=== PATIENT | male | born 1970 | race Caucasian/White ===

== ENCOUNTER → 2018-07-14 09:11 | Day surgery (SDC) | payer BC ==
--- NOTE | 2018-07-02 10:06 | HP ---
AMENDED REPORT NOW INCLUDES COSIGNER DESIGNATION CC: Dr. Renzo Martinez, [facility]; Dr. Cross, [facility]; Dr. Hicks, [employer] * ADMISSION HISTORY AND PHYSICAL: DATE OF ADMISSION: 07/14/18 ATTENDING SURGEON: Dr. Nicola Fonseca.* (DICTATED BY GILMER BATES) CHIEF COMPLAINT: Umbilical hernia. HISTORY OF PRESENT ILLNESS: This is a 48-year-old male who 6 to 8 months ago noted pain in the area of the umbilicus associated with intermittent bulge. The patient states that whenever the hernia is out, he has discomfort and therefore, he manually attempts to reduce it which is multiple times a day. The number of times he needs to reduce it has increased significant in the past month or so. He does have some associated nausea, but no vomiting and symptoms subside once the hernia is reduced. He has not had any particular change in bowel movements, though he does experience some constipation secondary to hydrocodone use. He has tried using a back and abdominal support with some improvement. He was seen in the office by Dr. oFnseca on 03/29/18, at which time exam confirmed the presence of a mildly tender reducible umbilical hernia with a defect estimated at 2 to [address] Fonseca recommended repair. The patient understands the indications, risks, benefits, and alternatives and would like to proceed as scheduled with open repair of umbilical hernia with possible mesh. PAST MEDICAL HISTORY: Psoriatic arthritis, spondylosis, chronic pain, hypertension, type 2 diabetes, anxiety and depression, sleep apnea (on CPAP), history of TIA approximately 10 years ago, tobacco use. He did have a cardiac catheterization done at the time of his TIA and was told that a piece of plaque was broken loose by the catheter, but he has had no cardiac symptoms or problems in the interim. 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 PAST SURGICAL HISTORY: His only previous surgery is a left shoulder surgery at age 16. CURRENT MEDICATIONS: 1. Celexa 40 mg once daily. 2. Cosentyx 300 mg subcutaneously once weekly (his last dose was 06/19/18 in preparation for surgery). 3. Methotrexate 2.5 mg 6 tablets every Thursday. His last dose 06/15/18. 4. Cardizem CD 120 mg once daily. 5. Metformin 500 mg b.i.d. 6. Gabapentin recently increased to 200 mg t.i.d. 7. Testosterone gel topically once daily. 8. Folic acid 1 mg once daily. 9. Flexeril 10 mg t.i.d. p.r.n. (generally, he uses once daily at h.s.). 10. Nystatin powder p.r.n. for rash. 11. Hydrocodone/APAP 5/325 one tablet 3 to 4 times daily. 12. He uses fluocinonide 0.05% topical cream p.r.n. for his psoriasis or halobetasol 0.05% p.r.n. 13. He uses dfrq-liz-oobbjrq ibuprofen p.r.n. 14. He takes the following supplements, multivitamin, vitamin D 5000 International Units once daily, vitamin C 1000 mg once daily. 15. Milk thistle 2 tablets once daily. 16. Turmeric daily. ALLERGIES: HUMIRA (severe weakness), CHANTIX (bad dreams), CYMBALTA (diarrhea) , EFFEXOR (ROAD MANAGER side effects). FAMILY HISTORY: Negative for anesthesia problems, bleeding or clotting disorders. SOCIAL HISTORY: The patient is . His daughter, her and their granddaughter also with them. He is not currently working, but has previously worked at [employer]. He ambulates with a cane. He is a current smoker one half to three quarters of pack per day, but is attempting to quit. He drinks on average 1 to 2 drinks every other day. He denies other recreational drug use. REVIEW OF SYSTEMS: General: No recent constitutional symptoms or acute illnesses other than described in the HPI. He has had chronic bilateral foot pain for which he is anticipating foot surgery with Dr. Cross soon after his hernia repair. He also received a left hip injection from Dr. Solis recently with improvement. He was seen for medical clearance today by Dr. Martinez (see separate note). HEENT: No problems reported. Cardiovascular: No chest pain or palpitations. He is treated for hypertension. Respiratory: No history of asthma, chronic cough, or shortness of breath. Smoking history as noted. GI: No problems reported other than constipation secondary to hydrocodone. : No problems reported. Endocrine: History of type 2 diabetes. He states that his fingersticks generally run around 150. He is unsure of his most recent A1c. Musculoskeletal: Psoriatic arthritis with arthritic changes of both hands and feet. He uses bilateral AFOs. Neuropsych: He is treated for anxiety and depression as well as chronic pain. He was recently referred to the pain clinic (Dr. Garcia) and is considering medical marijuana for pain management. PHYSICAL EXAMINATION GENERAL: Well-nourished, somewhat obese male, in no acute distress. VITAL SIGNS: Height 5 feet 7 inches, weight 203 pounds. Temperature 97.1, blood pressure 120/66, pulse 68. HEENT: Pupils are equal, round, and reactive. EOMs intact. No conjunctival pallor. Oropharynx, teeth in good repair. No intraoral lesions. NECK: No lymphadenopathy, thyromegaly, or masses. LUNGS: Clear to auscultation. No wheezes. HEART: Regular rate and rhythm. No murmur noted. ABDOMEN: Soft, nontender to palpation with the exception of the umbilical hernia area where there is a palpable mildly tender hernia defect. The remainder of the abdomen is soft and nontender without palpable masses or organomegaly. No inguinal hernia on recent exam. EXTREMITIES: No edema. He does have arthritic changes of both hands and feet. GENITALIA AND RECTAL: Not done today. BACK: No spinous process or CVA tenderness. NEUROLOGIC: Grossly intact. SKIN: Warm and dry. No suspicious rashes or lesions noted. IMPRESSION: Umbilical hernia. PLAN: Open repair of umbilical hernia with possible mesh. GILMER BATES [id number]/[facility] #: [id number] KI
[~2018-07-14 09:11] MED LIST: Acetaminophen TAB* 325 MG ONE; Acetaminophen TAB* 325 MG PO ONE; Buffered Lidocaine 0.9% SYRIN* 5 ML/SYR SYRINGE INTRADERM ONE; Bupivacaine 0.5% W/EPI SDV* 30 ML VIAL ONE; Dexamethasone IV* 4 MG/ML 1 ML (4 MG) ONE; Famotidine IV* 10 MG/ML 2 ML (20 mg) ONE; Ketorolac INJ* 30 MG/ML 1 ML VIAL ONE; Lidocaine 1% INJ* 10 MG/ML 30 ML SDV ONE; Midazolam* 1 MG/ML 2 ML VIAL (2 MG) ONE; Perflutren Lipid Microsphere* 3 ML VIAL ONE; Propofol* 10 MG/ML 20 ML BTL IV PUSH ONE; ceFAZolin 2 GM PREMIX in ORs 2 GM/50 ML BAG IVPB ONE; fentaNYL* 50 MCG/ML 2 ML VIAL (100 MCG VIAL) ONE
--- NOTE | 2018-07-14 11:49 | CONSULT ---
Subjective Date of Service: 07/14/18 - AFL Interval History: Pleasant 48 year old male patient who presented to [facility] – [place] today for elective umbilical hernia repair. According to Dr. Pino asnesthiology patient was found in be in AFL 3:1 conduction thus cardiology was consulted. Patient denies chest pain, palpitation, sensation of heart racing, chest pain, sob, dougherty, dizziness or syncope. does report 7 day h/o fatigue and intermittant nausea. Last ischemic eval per patient and his who is at bedside was > 5 years ago. He denies recently having an ecg done for pre operative clearance by PCP for hernia repair. Family History: Unchanged from Admission Social History: - On going tobacco 1/2 PPD for the past 30 years ago. moderate ETOH abuse, denies drug abuse, disabled, Past Medical History: Unchanged from Admission - GERARDO compliant with CPAP, DM, HTN, tobacco abuse, psoriatic arthritis, umbilical hernia, TIA after [facility] Medications Active Medications: Home Medications include; Folic acid daily, methotrexate 6mg PO tuesdays Neurotic 100mg ( 2) tablets PO TID Williams as directed Metformin 500mg PO BID Cardizem CD 120mg Po daily Celexa 40mg PO daily Cyclobenzaprine 5mg PO Q6H prn androgen as directed. Home Medications: Folic Acid TAB* [Folvite TAB*] 2 tab PO QAM 12/21/13 [History Confirmed 07/14/18 ] HYDROcodone/ACETAMIN 5-325 MG* [Williams 5-325 TAB*] 1 tab PO TID 03/30/14 [ History Confirmed 07/14/18] Ascorbic Acid TAB* [Vitamin C TAB*] 1,000 mg PO QAM 07/07/18 [History Confirmed 07/14/18] Cholecalciferol TAB* [Vitamin D TAB*] 5,000 unit PO QAM 07/07/18 [History Confirmed 07/14/18] Citalopram TAB* [CeleXA TAB*] 40 mg PO QAM 07/07/18 [History Confirmed 07/14/18] Cyclobenzaprine (NF) [Cyclobenzaprine 5 MG (NF)] 5 mg PO Q6H PRN 07/07/18 [ History Confirmed 07/14/18] Diltiazem CD CAP* [Cardizem CD CAP*] 120 mg PO QAM 07/07/18 [History Confirmed 07/14/18] Dry Skin Cream 07/07/18 [History] Gabapentin CAP(*) [Neurontin 100 mg CAP(*)] 2 tab PO TID 07/07/18 [History Confirmed 07/14/18] Methotrexate TAB* 6 tab PO TU 07/07/18 [History Confirmed 07/07/18] Milk Thistle 2 cap PO QAM 07/07/18 [History Confirmed 07/14/18] Secukinumab [Cosentyx] 300 mg INJ WEEKLY 07/07/18 [History Confirmed 07/07/18] Testosterone GEL (NF) [Androgel (NF)] 1 dose TOPICAL QAM 07/07/18 [History Confirmed 07/14/18] Vitamin B12 TAB* 1 tab PO QAM 07/07/18 [History Confirmed 07/14/18] metFORMIN* [Glucophage 500 MG TAB *] 500 mg PO BID 07/07/18 [History Confirmed 07/14/18] Review of Systems - Measurements Intake and Output: Intake and Output Last 24 Hours 07/12/18 07/13/18 07/14/18 07/15/18 06:59 06:59 06:59 06:59 Weight 208 lb - Review of Systems Constitutional Symptoms: Positive: Fatigue Gastroenterology: Positive: Nausea Review of Systems Statement: All other review of systems negative, unless stated above. Objective Vital Signs: Temp Pulse Resp BP Pulse Ox 97.3 F 77 17 128/94 98 07/14/18 11:20 07/14/18 11:35 07/14/18 11:35 07/14/18 11:35 07/14/18 11:35 Oxygen Devices in Use Now: None Eyes: No Scleral Icterus, PERRLA Ears/Nose/Mouth/Throat: NL Teeth, Lips, Gums, Mucous Membranes Moist Neck: NL Appearance and Movements; NL JVP Respiratory: Clear to Auscultation Cardiovascular: NL Sounds; No Murmurs; No JVD, No Edema, - - Normal S1 S2, irregular rate and rhythm, no murmur or gallop. Abdominal: NL Sounds; No Tenderness; No Distention Extremities: No Edema Skin: No Rash or Ulcers Neurological: Alert and Oriented x 3, NL Muscle Strength and Tone Lines/Tubes/Other Access: Clean, Dry and Intact Peripheral IV Laboratory Results: None to review EKG Data: Aflutter rate 77, 3:1 conduction. Assessment/Plan Pleasant 48 year old male patient who does not have a primary ditch tender. He has a notable h/o GERARDO complaint wiht CPAP, HTN, DM, on going otbacco abuse and psoriatic arthritis. He presented to [facility] [place] today for elective umbilical hernia repair. Per Dr. Pino once the patient was hooked up to telemetry AFL. #1 Newly Diagnosed AFL; Chads Vasc 4 ( HTM, DM, TIA) rates are currently controlled not on AV miguel agent. At home he is on Cardizem 120/day which I would continue. He is not symptomatic thus duration of time in AFL is unknown. Will check TFTs, CBC, BMP. He has notable risk factors such as GERARDO and obesity. There are two options the first is to do ASHUTOSH/CV and initiate DOAC, the second is to initiate DOAC and CV in 4-6 weeks. He will need an echo at some point which could also be insightful as to duration of AFL if there is atrial dilatation. #2 Umbilical Hernia; Defer to primary team #3 h/o HTN; On cardizem 120mg PO daily. Bp controlled. #4 h/o TIA after prior LHC thought to be cardioembolic. #5 disposition pending course will speak with Dr. Wood about plan of care and make further recommendations at that time.
[2018-07-14 12:25] LABS: ABS Basophils 0.1 10^3/ul (0-0.2); ABS Eosinophils 0.5 10^3/ul (0-0.6); ABS Lymphocytes 1.8 10^3/ul (1.0-4.8); ABS Monocytes 0.6 10^3/ul (0-0.8); ABS Neutrophils 6.2 10^3/ul (1.5-7.7); ABS Nucleated RBC 0 10^3/ul; Eosinophil % 5.1 % (0-6); Hematocrit 45 % (42-52); Hemoglobin 15.6 g/dl (14.0-18.0); Lymphocyte % 19.7 % (25-47); Mean Corpuscular HGB Conc 34 g/dl (31-36); Mean Corpuscular Hemoglobin 32 pg (27-31); Mean Corpuscular Volume 94 fL (80-94); Nucleated Red Blood Cells % 0.1; Platelet Count 200 10^3/ul (150-450); Red Blood Count 4.81 10^6/ul (4.00-5.40); Red Cell Distribution Width 13 % (10.5-15); White Blood Count 9.1 10^3/ul (3.5-10.8)
[2018-07-14 12:34] LABS: INR 0.98 (0.77-1.02)
[2018-07-14 12:47] LABS: EGFR Non-African American 138.5 (>60)
[2018-07-14 15:05] VITALS: BP 132/83
--- NOTE | 2018-07-14 15:20 | ECHO ---
Patient: MAO BURT [facility] Rec#: [id number] : 1970 Date: 07/14/2018 Age: 48y Height: 168 cm / 66.1 in Weight: 94 kg / 207.2 lbs Sex: M BSA: 2.03 Room#: PACU 8 Admit Date#: 07/14/2018 Type: Outpatient Referring: Meg Antoine Reading: Collette Wood MD On Site Services Specialist: Frances Jones RDCS,RDMS CC: Renzo Martinez MD Transthoracic Echocardiogram Indication: AFLUTTER BP: 127/81 HR: 73 Rhythm: A-Flutter Findings History: HTN, DM, GERARDO, smoker Technical Comments: The study quality is fair. Body habitus impacts image quality. Left Ventricle: The left ventricular chamber size is normal. Mild concentric left ventricular hypertrophy is observed. There is diffuse global hypokinesis of the left ventricle. There is moderately decreased left ventricular systolic function. The estimated ejection fraction is 35-40%. The assessment of diastolic function is non-diagnostic. Left Atrium: The left atrium is mildly dilated. Right Ventricle: The right ventricular cavity size is normal. The right ventricular global systolic function is moderately reduced. Right Atrium: The right atrium is mildly dilated. Aortic Valve: The aortic valve is trileaflet. Systolic excursion of the aortic valve is normal. There is aortic annular calcification. There is no evidence of aortic regurgitation. There is no evidence of aortic stenosis. Mitral Valve: The mitral valve leaflets are mildly thickened. There is no evidence of mitral regurgitation. There is no evidence of mitral stenosis. Tricuspid Valve: The tricuspid valve leaflets are normal. There is trace tricuspid regurgitation. Unable to estimate the right ventricular systolic pressure. Pulmonic Valve: The pulmonic valve appears normal. There is a trace pulmonic regurgitation. Pericardium: There is no significant pericardial effusion. Aorta: The aortic root appears normal. There is no dilatation of the aortic arch. Pulmonary Artery: The main pulmonary artery appears normal. Venous: The inferior vena cava is dilated. There is a greater than 50% respiratory change in the inferior vena cava dimension. Contrast: Definity was used to optimize study. A total of 3 ml was used Conclusions The study quality is fair. Body habitus impacts image quality. Mild concentric left ventricular hypertrophy is observed. There is diffuse global hypokinesis of the left ventricle. There is moderately decreased left ventricular systolic function. The estimated ejection fraction is 35-40%. The right ventricular global systolic function is moderately reduced. All valves show normal function. The patient was in atrial flutter with a controlled ventricular rate throughout the study. No prior echo to compare. Measurements Name Value Normal Range RVIDd (AP) 2D 3.2 cm (0.9 - 2.6) RAd ISD 4CH 5.7 cm (3.4 - 4.9) RA (A4C)W 4 cm (2.9 - 4.6) IVSd (2D) 1.2 cm (0.6 - 1) LVPWd (2D) 1 cm (0.6 - 1) LVIDd (2D) 5.2 cm (3.6 - 5.4) LVIDs (2D) 4.3 cm - LV FS (2D) 17 % (25 - 45) Aortic Annulus 2.1 cm (1.4 - 2.6) Ao root diameter (2D) 3.2 cm (2.1 - 3.5) Ascending Ao 3 cm (2.1 - 3.4) Aortic arch 2.8 cm (1.8 - 3.4) LA dimension (AP) 2D 4 cm (2.3 - 3.8) LAd ISD 4CH 5.4 cm (2.9 - 5.3) LA ISD 4CH W 5.5 cm (2.5 - 4.5) Name Value Normal Range LA ESV BP (A/L) index 39 ml/m2 - Name Value Normal Range MV E-wave Vmax 0.9 m/sec - MV deceleration time 151 msec - LV septal e' Vmax 0.15 m/sec - LV E:e' septal ratio 6 ratio - Name Value Normal Range AV Vmax 1 m/sec - AV peak gradient 4 mmHg - LVOT Vmax 0.8 m/sec - LVOT peak gradient 3 mmHg - MAXIMILIAN Vmax 0.8 m/sec - Name Value Normal Range RAP 8 mmHg - IVC diameter 2.3 cm - Name Value Normal Range PV Vmax 0.6 m/sec - PV peak gradient 1 mmHg -
== END | disposition home or self-care (01) ==
LOC: OR 09:11
PROVIDERS: ATTEND Surgery
DX: K42.9 Umbilical hernia without obstruction or gangrene (principal); Z53.09 Procedure and treatment not carried out because of other contraindication; I48.4 Atypical atrial flutter; Z72.0 Tobacco use; I10 Essential (primary) hypertension; E11.9 Type 2 diabetes mellitus without complications; Z79.84 Long term (current) use of oral hypoglycemic drugs; G47.33 Obstructive sleep apnea (adult) (pediatric); Z86.73 Personal history of transient ischemic attack (TIA), and cerebral infarction without residual deficits; L40.50 Arthropathic psoriasis, unspecified
CPT/HCPCS: 36415; 80048; 84439; 84443; 84481; 85025; 85610; 93005; 93306; A9270-GY; C8929; J0690; J1100; J1885; J2250; J2704; J3010

== ENCOUNTER → 2018-07-27 08:16 | Day surgery (SDC) | payer BC ==
[~2018-07-27 08:16] MED LIST changes: -Acetaminophen TAB* 325 MG ONE; -Acetaminophen TAB* 325 MG PO ONE; -Buffered Lidocaine 0.9% SYRIN* 5 ML/SYR SYRINGE INTRADERM ONE; -Bupivacaine 0.5% W/EPI SDV* 30 ML VIAL ONE; -Dexamethasone IV* 4 MG/ML 1 ML (4 MG) ONE; +Diazepam TAB(*) 5 MG ONE; -Famotidine IV* 10 MG/ML 2 ML (20 mg) ONE; +Heparin 2 UNITS/ML IVPREMIX* 2,000 ML IV ONE; +Heparin(*) 1000 UNIT/ML 10 ML VIAL CATH LAB IV ONE; +Iohexol 300 (CONTRAST) 10 ML SDV ONE; +Iohexol 350 (CONTRAST) 200 ML MDV IV ONE; -Ketorolac INJ* 30 MG/ML 1 ML VIAL ONE; +Midazolam* 1 MG/ML 10 ML VIAL (10 MG) ONE; -Midazolam* 1 MG/ML 2 ML VIAL (2 MG) ONE; +NS 0.9% 1000 ML* 1,000 ML IV SCH; +Nitroglycerin TAB 0.4 MG* 0.4 MG TAB SL PRN; -Perflutren Lipid Microsphere* 3 ML VIAL ONE; -Propofol* 10 MG/ML 20 ML BTL IV PUSH ONE; +VERAPAMIL 2.5 MG/ML 2 ML VIAL ** 5 mg/2 ml ONE; -ceFAZolin 2 GM PREMIX in ORs 2 GM/50 ML BAG IVPB ONE; +nitroGLYCERIN DRIP* 25,000 MCG/250 ML BTL ONE
[2018-07-27 13:14] VITALS: BP 113/76
--- NOTE | 2018-07-28 11:40 | CATH ---
CC: Dr. Collette Wood * CARDIAC CATHETERIZATION: DATE OF PROCEDURE: 07/27/18 [facility] CATH PROCEDURE: Cardiac catheterization including coronary angiography. HISTORY: The patient is a 48-year-old gentleman with a history of atrial flutter, also with a history of severe inguinal hernias who was scheduled for surgery when he was found to be in atrial flutter. A workup by Dr. Wood showed the patient had a mild hypokinesis of his left ventricle with an ejection fraction of 43%. A stress test had a small to moderate area of ischemia to the anterior wall and an area of potential infarct to the apex. Because of the potential need for surgical correction of his inguinal hernia, cardiac catheterization was recommended. PROCEDURE IN DETAIL: The patient was brought to the cardiac catheterization lab in a fasting state. Informed consent had been obtained prior to the procedure. All labs have been reviewed. The patient was placed supine on the procedure table. His right radial area was prepped and draped in the usual fashion. 1% lidocaine was used for local anesthesia. The radial artery was entered by a Seldinger technique and a guidewire was placed. Over the guidewire a 6-Egyptian hydrophilic sheath was placed. The patient underwent coronary angiography using a 6-Egyptian AR1 catheter and a AL1 catheter. At the end of the procedure, all sheaths and catheters were removed. The patient tolerated the procedure well with no complications. A total of 50 cc of Omnipaque dye was used and a total of 9.1 minutes of fluoro time was used. FINDINGS: Hemodynamics: Central aortic blood pressure of 90/69 with a mean of 79. Left ventricular pressure 94/10 with an end-diastolic pressure of 14. CORONARY ARTERIES: 1. Right coronary: The RCA was a large dominant vessel without disease. 2. Left main: The left main was normal in size. It bifurcated into the LAD and circumflex. There is no evidence of stenosis. 3. Left anterior descending artery: The LAD was normal in size. It gave off 2 diagonal vessels. There was no evidence of stenosis. 4. Left circumflex artery: The circumflex artery was normal in size. It gave off 2 obtuse marginal branches. There was no evidence of stenosis. IMPRESSION: 1. Normal coronary arteries. 2. Successful right radial catheterization. RECOMMENDATIONS: The patient will continue on maximum medical therapy. [id number]/[facility] #: [id number] [facility]
== END | disposition home or self-care (01) ==
LOC: CHICATH 08:16
PROVIDERS: ATTEND Specialist
DX: R94.39 Abnormal result of other cardiovascular function study (principal); I48.92 Unspecified atrial flutter; I25.5 Ischemic cardiomyopathy; E11.9 Type 2 diabetes mellitus without complications; Z79.84 Long term (current) use of oral hypoglycemic drugs; Z79.01 Long term (current) use of anticoagulants; Z88.8 Allergy status to other drugs, medicaments and biological substances; J45.909 Unspecified asthma, uncomplicated; I10 Essential (primary) hypertension; Z86.73 Personal history of transient ischemic attack (TIA), and cerebral infarction without residual deficits; F17.210 Nicotine dependence, cigarettes, uncomplicated; Z95.0 Presence of cardiac pacemaker
CPT/HCPCS: 93454; 99156; 99157; A9270-GY; C1887; J1644; J2250; J3010; Q9967

== ENCOUNTER 2018-08-10 14:13 | Day surgery (SDC) | payer BC ==
--- NOTE | 2018-08-05 19:54 | HP ---
CC: Dr. Martinez; Dr. Wood; Dr. Cross; Dr. Hicks, [employer] * ADMISSION HISTORY AND PHYSICAL: DATE OF ADMISSION: 08/10/18 ATTENDING PHYSICIAN: Dr. Nicola Fonseca * (GILMER Woodward). CHIEF COMPLAINT: Umbilical hernia. HISTORY OF PRESENT ILLNESS: This is a 48-year-old male who was scheduled for umbilical hernia repair on 07/14/18. He was found at that time to be in atrial flutter with controlled ventricular rate. His surgery was cancelled. He then underwent echocardiogram on 07/14/18 showing mild LVH, global hypokinesia, and a reduced ejection fraction estimated at 35% to 40%. A subsequent stress test on 07/19/18 showed evidence of an apical DC versus apical thinning with reversible ischemia in the anterior wall and a left ventricular ejection fraction calculated at 43%. He subsequently underwent cardiac catheterization on 07/27/18, which was apparently normal. He has been seen by Dr. Wood in followup and felt to be a good candidate for umbilical hernia repair. He is on anticoagulation (see below). She is considering cardioversion sometime in the near future. The patient had first noted pain in the umbilical area associated with an intermittent bulge beginning 7 to 9 months ago. The patient has discomfort throughout the day, but particularly when related to activity. He manually attempts to reduce the hernia multiple times during the day. He occasionally has associated nausea, but no vomiting and no symptoms to suggest incarceration or strangulation. His symptoms subside once the hernia is reduced. He has not had any particular change in bowel movements. He has used a back and abdominal support belt with some improvement. He was seen in the office by Dr. Fonseca on 03/29/18, at which time exam confirmed the presence of a mildly tender reducible umbilical hernia with a defect estimated at 2 to [address] Fonseca recommended repair. The patient understands the indications, risks , benefits, and alternatives and would like to proceed as scheduled with open repair of umbilical hernia with possible mesh. PAST MEDICAL HISTORY: Recent cardiac history as noted above with atrial flutter and cardiomyopathy, psoriatic arthritis, spondylosis, chronic pain, hypertension, type 2 diabetes, anxiety and depression, sleep apnea (on CPAP), history of TIA approximately 10 years ago, and tobacco abuse. PAST SURGICAL HISTORY: Left shoulder surgery at age 16. CURRENT MEDICATIONS: 1. Metoprolol succinate extended release 50 mg once daily at h.s. 2. Eliquis 5 mg b.i.d. (the patient is instructed to hold after his 08/08/18 evening dose). 3. Aspirin 325 mg once daily (instructed to continue perioperatively). 4. Celexa 40 mg once daily. 5. Cosentyx 300 mg subcutaneously once weekly (this has been held since ). 6. Methotrexate 2.5 mg 6 tablets every Thursday (last dose 06/15/18). 7. Metformin 500 mg b.i.d. 8. Gabapentin 200 mg t.i.d. 9. Testosterone gel topically once daily. 10. Folic acid 1 mg once daily. 11. Flexeril 10 mg t.i.d. p.r.n. (generally he uses once daily at h.s.). 12. Hydrocodone/APAP 5/325 one tablet 3 to 4 times daily p.r.n. pain. 13. Nystatin powder p.r.n. for rash. 14. Fluocinonide 0.05% topical cream p.r.n. for psoriasis or halobetasol 0.05% p.r.n. topically. 15. He uses [id number]-[id number]-[id number] ibuprofen p.r.n. He also takes the following supplements: 1. Multivitamin. 2. Vitamin D 5000 International Units once daily. 3. Vitamin C 1000 mg once daily. 4. Milk thistle 2 tablets once daily. 5. Turmeric once daily. 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 FAMILY HISTORY: Negative for anesthesia problems, bleeding or clotting disorders. SOCIAL HISTORY: The patient is . He is not currently working, but has previously worked at [employer]. He ambulates with a cane. He is a current smoker, who is attempting to quit. He states that he stopped drinking ( previously 1 to 2 drinks every other day). He denies other recreational drug use. REVIEW OF SYSTEMS: General: No additions to the HPI. He has had chronic bilateral foot pain for which he is anticipating foot surgery with Dr. Cross in the near future. He also received a hip injection from Dr. Solis recently with improvement. HEENT: No problems reported. Cardiovascular: No chest pain or palpitations. Recent evaluation for atrial flutter with cardiomyopathy (see attached from Dr. Wood). Respiratory: No history of asthma, chronic cough, or shortness of breath. Smoking history as noted. GI: No problems other than constipation secondary to hydrocodone. : No problems reported. Endocrine: Type 2 diabetes. He states that his fingersticks generally run around 150. Musculoskeletal: Psoriatic arthritis with arthritic changes of both hands and feet. He uses bilateral AFOs. Neuropsych: He is treated for anxiety and depression as well as chronic pain. He was recently referred to the pain clinic (Dr. Garcai) and is considering medical marijuana for pain management. PHYSICAL EXAMINATION GENERAL: Well-nourished, well-developed, somewhat obese male, in no acute distress. VITAL SIGNS: Height 66 inches, weight 208 pounds, BMI 33.6. Blood pressure 106 /64, pulse 72, respirations 18. HEENT: Pupils are equal, round, and reactive. EOMs intact. No conjunctival pallor. Oropharynx, teeth in good repair. No intraoral lesions. NECK: No lymphadenopathy, thyromegaly, or masses. LUNGS: Clear to auscultation. No wheezes. HEART: Regular rate and rhythm. No murmur noted. ABDOMEN: Visible area of swelling at the umbilicus where there is a palpable mildly tender hernia, which I did not attempt to reduce. The remainder of the abdomen is soft and nontender without palpable mass or organomegaly. No inguinal hernia on recent exam. EXTREMITIES: No edema. He does have arthritic changes of both hands and feet. GENITALIA AND RECTAL: Not done today. BACK: No spinous process or CVA tenderness. NEUROLOGIC: Grossly intact. SKIN: Warm and dry. No suspicious rashes or lesions noted. IMPRESSION: Umbilical hernia. PLAN: Open repair of umbilical hernia with possible mesh. GILMER WOODWARD [id number]/[facility] #: [id number] [facility]
[~2018-08-10 14:13] MED LIST changes: +Buffered Lidocaine 0.9% SYRIN* 5 ML/SYR SYRINGE INTRADERM ONE; +DiMENhydriNATE IV* 50 MG/ML VIAL IV PUSH PRN; -Diazepam TAB(*) 5 MG ONE; +Famotidine IV* 10 MG/ML 2 ML (20 mg) IV ONE; -Heparin 2 UNITS/ML IVPREMIX* 2,000 ML IV ONE; -Heparin(*) 1000 UNIT/ML 10 ML VIAL CATH LAB IV ONE; -Iohexol 300 (CONTRAST) 10 ML SDV ONE; -Iohexol 350 (CONTRAST) 200 ML MDV IV ONE; +Lactated Ringers 1000 ML Bag* 1,000 ML IV SCH; -Lidocaine 1% INJ* 10 MG/ML 30 ML SDV ONE; -Midazolam* 1 MG/ML 10 ML VIAL (10 MG) ONE; +Morphine VIAL* 4 MG/ML VIAL (1 ml vial) IV PRN; -NS 0.9% 1000 ML* 1,000 ML IV SCH; +Naloxone* 0.4 MG/ML 1 ML VIAL IV PRN; -Nitroglycerin TAB 0.4 MG* 0.4 MG TAB SL PRN; +Ondansetron TAB* 4 MG PO ONE; +PROCHLORPERAZINE INJ 5 MG/ML 2 ML VIAL IV PRN; -VERAPAMIL 2.5 MG/ML 2 ML VIAL ** 5 mg/2 ml ONE; +fentaNYL* 50 MCG/ML 2 ML VIAL (100 MCG VIAL) IV PRN; -fentaNYL* 50 MCG/ML 2 ML VIAL (100 MCG VIAL) ONE; -nitroGLYCERIN DRIP* 25,000 MCG/250 ML BTL ONE; +oxyCODONE/Acetamin 5/325 MG* TAB PO PRN
[2018-08-10] MEDS ORDERED: Midazolam* 1 MG/ML 5 ML VIAL (5 MG) ONE (14:15)
[2018-08-10] MEDS ORDERED: KETAMINE HCL* 50 MG/ML 10 ML VIAL ONE (14:15)
[2018-08-10] MEDS ORDERED: fentaNYL* 50 MCG/ML 2 ML VIAL (100 MCG VIAL) ONE (14:15)
[2018-08-10] MEDS ORDERED: Ondansetron ODT TAB* 4 MG ONE (14:50)
[2018-08-10] MEDS ORDERED: Famotidine IV* 10 MG/ML 2 ML (20 mg) ONE (14:50)
[2018-08-10] MEDS ORDERED: ceFAZolin 2 GM PREMIX in ORs 2 GM/50 ML BAG IVPB ONE (14:51)
[2018-08-10] MEDS ORDERED: Bupivacaine 0.25% EPI 200,000* 30 ML SDV ONE (15:22)
[2018-08-10] MEDS ORDERED: Lidocaine 1% INJ* 10 MG/ML 30 ML SDV ONE (15:25)
[2018-08-10] MEDS ORDERED: Bupivacaine 0.5% W/EPI SDV* 30 ML VIAL ONE (15:25)
[2018-08-10] MEDS ORDERED: Lidocaine 2% PF * 5 ML VIAL ONE (15:53)
[2018-08-10] MEDS ORDERED: Propofol* 500 MG/50 ML BTL ONE (15:53)
[2018-08-10] MEDS ORDERED: Propofol* 10 MG/ML 20 ML BTL ONE (15:54)
[2018-08-10] MEDS ORDERED: Metoprolol Tartrate IV* 1 MG/ML 5 ML VIAL ONE (15:54)
[2018-08-10 16:49] VITALS: BP 119/87
--- NOTE | 2018-08-16 12:55 | OP ---
CC: Renzo Martinez MD; Rk Hicks MD, Rheumatology, [place] * DATE OF OPERATION: 08/10/18 - SDS DATE OF : 70 SURGEON: Nicola Fonseca MD COPY PREPARER: Nayely Mai NP ANESTHESIOLOGIST: Dr. Meeks. ANESTHESIA: Local MAC. PRE-OP DIAGNOSIS: Umbilical hernia. POST-OP DIAGNOSIS: Umbilical hernia. OPERATIVE PROCEDURE: Open repair of umbilical hernia. ESTIMATED BLOOD LOSS: Less than 20 mL. FLUIDS: Crystalloids. SPECIMENS: None. DRAINS: None. COMPLICATIONS: None. COUNTS: The instrument, needle, and sponge counts were correct. DESCRIPTION OF PROCEDURE: The patient was brought to the operating room and placed on the table supine. Sequential compression devices were placed on both lower extremities. Intravenous sedation was administered. His abdomen was prepped and draped in the usual sterile fashion, and he received appropriate intravenous antibiotics. A time-out was performed. Local anesthetic was infiltrated into the skin and soft tissue in the periumbilical region. A curvilinear infraumbilical incision was created, and using a combination of sharp and blunt dissection as well as cautery, the umbilical skin was preserved as the hernia sac was dissected free from this. Within the sac was noted to be intestine which was easily reduced. The sac was not entered. The defect was examined and it measured 2 cm. It was decided to close this primarily. The repair was performed with 0 Tycron suture using interrupted [id number]-[id number] stitching. After completing the repair, the umbilical stalk was reapproximated to the fascia with 3-0 Vicryl and then the skin was closed in two layers with 3-0 Vicryl for the deep dermis and 4-0 Monocryl for the approximation of the skin edges. Steri-Strips and dressings were applied. The patient tolerated the procedure well and was awakened and transferred to Recovery in stable condition. [id number]/[facility] #: [id number] [facility]
== END 2018-08-10 16:59 | disposition home or self-care (01) ==
LOC: OR 14:13
PROVIDERS: ATTEND Surgery
DX: K42.9 Umbilical hernia without obstruction or gangrene (principal); Z72.0 Tobacco use; Z88.8 Allergy status to other drugs, medicaments and biological substances; E11.9 Type 2 diabetes mellitus without complications; Z79.84 Long term (current) use of oral hypoglycemic drugs; F41.8 Other specified anxiety disorders; G47.33 Obstructive sleep apnea (adult) (pediatric); I48.92 Unspecified atrial flutter; Z79.01 Long term (current) use of anticoagulants; I10 Essential (primary) hypertension; I42.9 Cardiomyopathy, unspecified; L40.50 Arthropathic psoriasis, unspecified
CPT/HCPCS: A9270-GY; J0690; J2250; J2704; J3010; J3490

== ENCOUNTER 2018-11-29 05:44 | Day surgery (SDC) | payer BC ==
--- NOTE | 2018-11-25 18:37 | HP ---
CC: Dr. Martinez * HISTORY AND PHYSICAL: DATE OF PLANNED ADMISSION AND SURGERY: 11/29/18 HISTORY OF PRESENT ILLNESS: Mr. Ramirez is a 48-year-old white male, who is admitted with proximal left ureteral calculus for shockwave lithotripsy followed by cystoscopy and placement of left ureteral stent. Mr. Ramirez was diagnosed with atrial flutter in July 2018. He was then started on Eliquis and after he was started on his treatment, he developed recurrent episodes of total gross painless hematuria. He did not have any flank pain or any voiding symptoms. The patient was worked up for the gross hematuria with a cystoscopy, which showed no suspicious bladder lesions. He then had a CT urogram, which showed a proximal left ureteral calculus. There were no other abnormalities noted, in particular there were no renal masses and no abnormal filling defects in the collecting systems or in the ureters. The gross hematuria was felt to be due to the ureteral calculus and effect of the anticoagulation. The patient then had a KUB, which confirmed the presence of a 7 mm radiopaque calculus in the proximal left ureter just distal to the ureteropelvic junction. Because of that finding, the patient is admitted for the above procedure. PAST MEDICAL HISTORY AND SYSTEM REVIEW: The patient is diabetic and is maintained on metformin 500 mg twice a day. He has atrial flutter and is maintained on Eliquis. The Eliquis was discontinued 5 days prior to this scheduled admission. He also has been on 1 regular aspirin per day and that was discontinued 5 days prior to his admission. He has hypertension and is maintained on metoprolol 50 mg daily. He has hypogonadism, on AndroGel replacement. He has history of anxiety and arthritis and is on Celexa 40 mg daily and on gabapentin 200 mg 3 times per day. He takes hydrocodone as needed for back pain. He uses medical marijuana by puffs every 4 hours as needed for his back pain. The patient was a chronic heavy smoker, but he stopped 10 years ago. He has an element of COPD. ALLERGIES: He reports having intolerance or allergic reaction to HUMIRA, CELEBREX, and CHANTIX. FAMILY HISTORY: Positive for arthritis, depression and anxiety in his mother, and hypertension and coronary artery disease in his father. PHYSICAL EXAMINATION GENERAL: Pleasant white male who looks older than his age, who is moderately overweight. VITAL SIGNS: Blood pressure 120/80, pulse of 70. LUNGS: Clear. HEART: Regular and rhythmic. No murmurs. ABDOMEN: Soft. No masses. No tenderness and no CVA tenderness. RECTAL: Exam showed a slightly enlarged, but nonsuspicious prostate. EXTREMITIES: Show no edema. IMPRESSION: 1. Recurrent episodes of gross hematuria while on anticoagulation with Eliquis , with the only positive finding on workup is a 7 mm calculus in the proximal left ureter. 2. Atrial flutter. 3. Hypertension. 4. Diabetes mellitus type 2. PLAN: The plan is for shockwave lithotripsy of the left ureteral calculus followed by placement of left ureteral stent. I discussed the above plans in detail with the patient. All his questions were answered. [id number]/[facility] #: [id number] [facility]
[~2018-11-29 05:44] MED LIST changes: -Buffered Lidocaine 0.9% SYRIN* 5 ML/SYR SYRINGE INTRADERM ONE; +Buffered Lidocaine 1% SYRIN* 1 ML/SYRINGE INTRADERM ONE; -DiMENhydriNATE IV* 50 MG/ML VIAL IV PUSH PRN; -Famotidine IV* 10 MG/ML 2 ML (20 mg) IV ONE; -Lactated Ringers 1000 ML Bag* 1,000 ML IV SCH; -Morphine VIAL* 4 MG/ML VIAL (1 ml vial) IV PRN; -Naloxone* 0.4 MG/ML 1 ML VIAL IV PRN; -Ondansetron TAB* 4 MG PO ONE; -PROCHLORPERAZINE INJ 5 MG/ML 2 ML VIAL IV PRN; +cefTRIAXone(*) 2 GM in NS 0.9% 100 ML* 100 ML IVPB ONE; -fentaNYL* 50 MCG/ML 2 ML VIAL (100 MCG VIAL) IV PRN; -oxyCODONE/Acetamin 5/325 MG* TAB PO PRN
[2018-11-29] MEDS ORDERED: Acetaminophen TAB* 325 MG PO ONE (06:00)
[2018-11-29] MEDS ORDERED: Lactated Ringers 1000 ML Bag* 1,000 ML IV SCH (06:00)
[2018-11-29] MEDS ORDERED: Acetaminophen TAB* 325 MG ONE (06:18)
[2018-11-29] MEDS ORDERED: cefTRIAXone(*) 2 GM ADDV.VIAL IVPB ONE (06:18)
[2018-11-29] MEDS ORDERED: fentaNYL* 50 MCG/ML 2 ML VIAL (100 MCG VIAL) ONE ×2 (07:15→07:57)
[2018-11-29] MEDS ORDERED: Midazolam* 1 MG/ML 2 ML VIAL (2 MG) ONE (07:16)
[2018-11-29] MEDS ORDERED: Iohexol 180 (CONTRAST) 10 ML SDV IV ONE (07:20)
[2018-11-29] MEDS ORDERED: Famotidine IV* 10 MG/ML 2 ML (20 mg) ONE (07:29)
[2018-11-29] MEDS ORDERED: Dexamethasone IV* 4 MG/ML 1 ML (4 MG) ONE (07:40)
[2018-11-29] MEDS ORDERED: Propofol* 10 MG/ML 20 ML BTL ONE (07:40)
[2018-11-29] MEDS ORDERED: Lidocaine 2% PF * 5 ML VIAL ONE (07:40)
[2018-11-29] MEDS ORDERED: Metoprolol Tartrate IV* 1 MG/ML 5 ML VIAL ONE (07:58)
[2018-11-29] MEDS ORDERED: DiMENhydriNATE IV* 50 MG/ML VIAL IV PUSH PRN (08:03)
[2018-11-29] MEDS ORDERED: Ondansetron INJ* 2 MG/ML VIAL IV PRN (08:03)
[2018-11-29] MEDS ORDERED: HYDROcodone/ACETAMIN 5-325 MG* 1 TAB PO PRN ×2 (08:03)
[2018-11-29] MEDS ORDERED: Naloxone* 0.4 MG/ML 1 ML VIAL IV PRN (08:03)
[2018-11-29] MEDS ORDERED: Levalbuterol 0.63MG/3ML NEB* UNIT OF USE INH PRN (08:03)
[2018-11-29] MEDS ORDERED: fentaNYL* 50 MCG/ML 2 ML VIAL (100 MCG VIAL) IV PRN (08:03)
[2018-11-29] MEDS ORDERED: diPHENhydraMINE IV* 50 MG/ML 1 ml VIAL (BENADRYL) IV PRN (08:03)
[2018-11-29] MEDS ORDERED: Acetaminophen TAB* 325 MG PO PRN (08:03)
[2018-11-29] MEDS ORDERED: PROCHLORPERAZINE INJ 5 MG/ML 2 ML VIAL IV PRN (08:03)
[2018-11-29] MEDS ORDERED: Ondansetron INJ* 2 MG/ML VIAL ONE (08:05)
[2018-11-29 09:32] VITALS: BP 123/73
--- NOTE | 2018-11-29 12:20 | OP ---
CC: Dr. Martinez * DATE OF OPERATION: 11/29/18 - SDS DATE OF : 70 SURGEON: Ashok Dunaway MD ANESTHESIOLOGIST: Dr. Axel Pino. ANESTHESIA: General. PRE-OP DIAGNOSIS: Proximal left ureteral calculus, 8 mm. POST-OP DIAGNOSIS: Proximal left ureteral calculus, 8 mm. OPERATIVE PROCEDURE: 1. Shock wave lithotripsy of proximal left ureteral calculus. 2. Cystoscopy, left retrograde pyelography, and placement of left ureteral stent (6 Peruvian). INDICATIONS: Mr. Ramirez is a 48-year-old white male, who was worked up because of gross hematuria and was noted on the CT urogram to have a 7- to 8-mm calculus at the left ureteropelvic junction. Cystoscopy was negative. The calculus was minimally obstructing. The patient had been maintained on anticoagulation. KUB showed the calculus to be radiopaque at the UPJ level. The patient now is admitted for treatment of the ureteral calculus. His anticoagulation was discontinued prior to the procedure. PATHOLOGY: At preoperative KUB and on fluoroscopy a triangular calculus was noted at the level of the ureteropelvic junction measuring about 7 to 8 mm in size. Cystoscopy showed no suspicious bladder lesions. Left retrograde pyelography showed mild fullness of the calyces. DESCRIPTION OF PROCEDURE: After successful general anesthesia, the patient was placed in the supine position on the shock wave lithotripsy table. The left ureteral calculus was visualized in both the PA and the oblique x-ray views and the position of the patient and the generator were adjusted to have the stone in the focus of the shock waves. A total of 2,060 shocks were then delivered at a rate of 60 shocks per minute. The proper positioning of the generator and of the stone were monitored periodically. There was very good fragmentation of the stone which seemed to have migrated inside the renal pelvis as it spread out at that level. The patient was then placed in the lithotomy position and was prepped and draped for a cystoscopy. Cystoscopy was performed. The bladder was inspected and the above findings were noted. A flexible-tipped guidewire was then introduced into the left orifice and positioned in the area of the renal pelvis. An open-ended catheter was fed on top of the guidewire and positioned inside the renal pelvis and the left collecting system was decompressed. Bloody urine was noted from the left kidney. Retrograde pyelography was performed. A size 6-Peruvian stent was then placed with the proximal end coiling in the renal pelvis and the distal end coiling inside the bladder. There was good drainage of contrast from the kidney. There was no evidence of any abnormal filling defects in the collecting system to suggest blood clots. The patient tolerated the procedures well and left the operating room in good condition. The plan is to see the patient in the office in 3 days for follow-up. The plan is to keep the stent in for about 10 days; it will be removed in the office under local anesthesia. [id number]/[facility] #: [id number] [facility]
== END 2018-11-29 19:16 | disposition home or self-care (01) ==
LOC: OR 05:44
PROVIDERS: ATTEND Urology
DX: N20.1 Calculus of ureter (principal); R31.9 Hematuria, unspecified; I48.92 Unspecified atrial flutter; Z79.01 Long term (current) use of anticoagulants; I10 Essential (primary) hypertension; E11.9 Type 2 diabetes mellitus without complications; Z79.84 Long term (current) use of oral hypoglycemic drugs; Z87.891 Personal history of nicotine dependence
CPT/HCPCS: 74018; A9270-GY; C1876; J0696; J1100; J2250; J2405; J2704; J3010; J3490

== ENCOUNTER 2019-06-28 08:49 | Day surgery (SDC) | payer BC ==
[~2019-06-28 08:49] MED LIST changes: +Lactated Ringers 1000 ML Bag* 1,000 ML IV SCH; -cefTRIAXone(*) 2 GM in NS 0.9% 100 ML* 100 ML IVPB ONE
[2019-06-28] MEDS ORDERED: Buffered Lidocaine 1% SYRIN* 1 ML/SYRINGE INTRADERM ONE (09:00)
[2019-06-28] MEDS ORDERED: ceFAZolin 2 GM in NS PREMIX(*) 2 GM/100 ML BAG IVPB ONE (09:00)
[2019-06-28] MEDS ORDERED: fentaNYL* 50 MCG/ML 2 ML VIAL (100 MCG VIAL) ONE (10:06)
[2019-06-28] MEDS ORDERED: Lidocaine 2% PF* 10 ML AMP ONE (10:06)
[2019-06-28] MEDS ORDERED: Midazolam* 1 MG/ML 2 ML VIAL (2 MG) ONE (10:06)
[2019-06-28] MEDS ORDERED: Propofol* 10 MG/ML 20 ML BTL ONE (10:06)
[2019-06-28] MEDS ORDERED: Bupivacaine 0.5%* 50 ML MDV VIAL ONE (11:06)
[2019-06-28] MEDS ORDERED: PROCHLORPERAZINE INJ 5 MG/ML 2 ML VIAL IV PRN (12:02)
[2019-06-28] MEDS ORDERED: oxyCODONE TAB* 5 MG TAB PO PRN (12:02)
[2019-06-28] MEDS ORDERED: Naloxone* 0.4 MG/ML 1 ML VIAL IV PRN (12:02)
[2019-06-28] MEDS ORDERED: Ondansetron INJ* 2 MG/ML VIAL IV PRN (12:02)
[2019-06-28] MEDS ORDERED: diPHENhydraMINE IV* 50 MG/ML 1 ml VIAL (BENADRYL) IV PRN (12:02)
[2019-06-28] MEDS ORDERED: Acetaminophen TAB* 325 MG PO PRN (12:02)
[2019-06-28] MEDS ORDERED: HYDROmorphone INJ1* 1 MG/ML SYRINGE ONE ×2 (12:31→13:29)
[2019-06-28] MEDS ORDERED: Ondansetron INJ* 2 MG/ML VIAL ONE (12:42)
[2019-06-28] MEDS ORDERED: Ketorolac INJ* 30 MG/ML 1 ML VIAL ONE (12:42)
[2019-06-28] MEDS ORDERED: oxyCODONE TAB* 5 MG TAB ONE (13:29)
[2019-06-28] MEDS ORDERED: Metoprolol Tartrate IV* 1 MG/ML 5 ML VIAL ONE ×2 (13:29→14:40)
[2019-06-28] MEDS ORDERED: Metoprolol Tartrate IV* 1 MG/ML 5 ML VIAL IV PRN (13:33)
[2019-06-28] MEDS: HYDROmorphone INJ1* 1 MG/ML SYRINGE IV PRN ×2 (13:41→13:51)
--- NOTE | 2019-06-28 15:05 | OP ---
Operative Report - Blank - Operative Report Date of Operation: 06/28/19 Note: PATIENT: Tee Ramirez DATE OF : 1970 DATE OF SURGERY: 06/28/2019 SURGEON: Tim Cross MD CLINICAL SYSTEMS ANALYST: GILMER Lares, whos assistance was necessary for positioning, retraction, help with instrumentation, and closure. ANESTHESIOLOGIST: Dr. Jay PREOPERATIVE DIAGNOSIS: Left forefoot pain, synovitis, and claw toes in the setting of psoriatic arthritis. Left gastrocnemius equinus. POSTOPERATIVE DIAGNOSIS: Left forefoot pain, synovitis, and claw toes in the setting of psoriatic arthritis. Left gastrocnemius equinus. OPERATION: 1. Left foot 2nd 5th 5th MTP joint synovectomies 2. Left foot FHL and 2nd 5th FDL tenotomies 3. Left foot 2nd 5th claw toe corrections with PIP resection arthroplasties 4. Left gastrocnemius recession ANESTHESIA: General IMPLANTS: 0.045 k-wire x2 and 0.062 k-wire x3 TOURNIQUET TIME: Less than 2 hours with a well-padded thigh tourniquet at 250 mmHg SPECIMENS: none ESTIMATED BLOOD LOSS: minimal COMPLICATIONS: none STATUS: Stable from the operating room to the recovery room and then home INDICATIONS FOR PROCEDURE: Tee has psoriatic arthritis and persistent forefoot pain at the MTP joints and tips of the toes. Both operative and non-operative treatment alternatives were reviewed. Further, the nature and risks of surgery were reviewed in careful detail. Our discussions regarding the risks of surgery included, but were not limited to, infection, wound problems, nerve injury, neuroma, RSD, persistent symptoms, blood clot, recurrent deformity, persistent pain, need for further surgery, failure of the surgery, and even the remote chance of catastrophic complication. DESCRIPTION OF PROCEDURE: The patient was seen in the preoperative holding unit and informed written consent was obtained. The appropriate extremity was marked. The patient was then brought to the operating room and carefully positioned on the operating room table. Anesthesia was induced. All bony prominences were padded with great care. A chlorhexidine based pre-scrub was performed followed by a chloraprep prep and drape in standard sterile fashion. A surgical safety pause was then conducted in which we confirmed the appropriate patient, extremity, planned procedure, availability of equipment, indication and administration of prophylactic antibiotics, and DVT prophylaxis in the form of a compression boot on the non-surgical extremity. I began with an Esmarch exsanguination of limb and inflated the tourniquet. I performed a percutaneous tenotomy of the second toe FDL through a plantar incision. I then made an incision over the left 2nd toe from the MTP joint to the PIP joint and taken down to the level of bone and joint. I sharply incised into the MTP joint and performed a thorough synovectomy with a Rongeur. The articular cartilage looked good. I then turned my attention to the PIP joint. The collateral ligaments were released on both sides. I then used a small oscillating saw to osteotomize the distal aspect of the proximal phalanx. This was then excised. I then placed a 0.062 K wire through the toe in an antegrade/ retrograde fashion. The resection and pin placement was then confirmed with fluoroscopy. The toe sat nice and straight clinically. I performed a percutaneous tenotomy of the 3rd toe FDL through a plantar incision. I then made an incision over the left 3rd toe from the MTP joint to the PIP joint and taken down to the level of bone and joint. I sharply incised into the MTP joint and performed a thorough synovectomy with a Rongeur. The articular cartilage looked good. I then turned my attention to the PIP joint. The collateral ligaments were released on both sides. I then used a small oscillating saw to osteotomize the distal aspect of the proximal phalanx. This was then excised. I then placed a 0.062 K wire through the toe in an antegrade/ retrograde fashion. The resection and pin placement was then confirmed with fluoroscopy. The toe sat nice and straight clinically. I performed a percutaneous tenotomy of the 4th toe FDL through a plantar incision. I then made an incision over the left 4th toe from the MTP joint to the PIP joint and taken down to the level of bone and joint. I sharply incised into the MTP joint and performed a thorough synovectomy with a Rongeur. The articular cartilage looked good. I then turned my attention to the PIP joint. The collateral ligaments were released on both sides. I then used a small oscillating saw to osteotomize the distal aspect of the proximal phalanx. This was then excised. I then placed a 0.045 K wire through the toe in an antegrade/ retrograde fashion. The resection and pin placement was then confirmed with fluoroscopy. The toe sat nice and straight clinically. I performed a percutaneous tenotomy of the 5th toe FDL through a plantar incision. I then made an incision over the left 5th toe from the MTP joint to the PIP joint and taken down to the level of bone and joint. I sharply incised into the MTP joint and performed a thorough synovectomy with a Rongeur. The articular cartilage looked good. I then turned my attention to the PIP joint. The collateral ligaments were released on both sides. I then used a small oscillating saw to osteotomize the distal aspect of the proximal phalanx. This was then excised. I then placed a 0.045 K wire through the toe in an antegrade/ retrograde fashion. The resection and pin placement was then confirmed with fluoroscopy. The toe sat nice and straight clinically. I then percutaneously released the FHL tendon of the left hallux through a plantar incision. I then placed a 0.062 K wire through the hallux in a retrograde fashion to hold this straight. I then made an approximately 3-cm incision at the posteromedial calf. I carried the dissection through the soft tissue and divided the crural fascia longitudinally. I then exposed the fascia of the gastrocnemius muscle. Great care was taken to protect the sural nerve throughout this procedure. I cleared all adhesions from the posterior aspect of the gastrocnemius fascia and then transected this in its entirety from medially to laterally. I then identified the plantaris tendon, which was also tight medially. This was transected. These procedures had the effect of improving the ankle dorsiflexion to approximately 10 degrees. I then again confirmed that the sural nerve was in continuity. All of the wounds were then copiously irrigated and closed in a layered fashion utilizing #3-0 Monocryl for the subdermal layer and 3-0 nylon or norbert for the skin. A sterile dressing was applied followed by a splint with the ankle in neutral position. The patient was then awakened from anesthesia and transferred to the recovery room in stable condition. There were no complications. All needle and sponge counts were correct at the end of the case. ATTESTATION: I attest I was present and scrubbed and performed the critical portions of the procedure myself. POSTOPERATIVE PLAN: Heel weightbearing and we will plan on 6 weeks with the k- wires. I will see him back in 2 weeks for a wound check and likely suture removal.
[2019-06-28 15:58] VITALS: BP 155/96
== END 2019-06-28 16:00 | disposition home or self-care (01) ==
LOC: OR 08:49
PROVIDERS: ATTEND Orthopaedic Surgery
DX: M20.5X2 Other deformities of toe(s) (acquired), left foot (principal); M65.872 Other synovitis and tenosynovitis, left ankle and foot; M67.02 Short Achilles tendon (acquired), left ankle; L40.59 Other psoriatic arthropathy; E11.9 Type 2 diabetes mellitus without complications; Z79.84 Long term (current) use of oral hypoglycemic drugs; F17.210 Nicotine dependence, cigarettes, uncomplicated; I10 Essential (primary) hypertension; J45.909 Unspecified asthma, uncomplicated; E78.00 Pure hypercholesterolemia, unspecified; F41.8 Other specified anxiety disorders; Z86.73 Personal history of transient ischemic attack (TIA), and cerebral infarction without residual deficits; Z79.01 Long term (current) use of anticoagulants
CPT/HCPCS: 76000; A9270-GY; C1776; J0690; J1170; J1885; J2001; J2250; J2405; J2704; J3010; J3490

== ENCOUNTER 2019-08-16 13:06 | Emergency (ER) | payer BC ==
--- OUTSIDE RECORDS SUMMARY | 2019-08-16 14:52 | XMS REPORT | Continuity of Care Document ---
:1970 External Reference #:[id number] Author Name Torito Garber M.D. (transmitted by agent of provider Dolly Singh) Address [address] [place] [id number] Care Team Providers Name Role Phone Renzo Martinez MD - Internal Medicine Care Team Information Size Maker Problems Active Problems Provider Date Malignant essential hypertension Daquan Sommer M.D. Onset: 2011 Electrocardiogram abnormal Daquan Sommer M.D. Onset: 05/17/2012 Chest pain Daquan Sommer M.D. Onset: 05/17/2012 Mixed hyperlipidemia Daquan Sommer M.D. Onset: 05/17/2012 Psoriasis with arthropathy Everette Robert M.D. Onset: 06/17/2012 Medications Half-Way (Current) Use Everette Robert M.D. Onset: 06/17/2012 Encounter Psoriasis Everette Robert M.D. Onset: 03/24/2014 Eruption Everette Robert M.D. Onset: 04/14/2014 Disorder of muscle Everetet Robert M.D. Onset: 04/14/2014 Type 2 diabetes mellitus with diabetic Tim Cross MD Onset: 10/02/2017 polyneuropathy Thoracic and lumbosacral neuritis Tim Cross MD Onset: 03/16/2018 Brachial neuritis Tim Cross MD Onset: 04/12/2018 Hammer toe Tim Cross MD Onset: 04/12/2018 Arthritis mutilans Adelina Solis M.D. Onset: 05/31/2018 Localized, primary osteoarthritis of Adelina Will, M.D. Onset: 05/31/2018 the pelvic region and thigh Acquired deformity of toe Tim Cross MD Onset: 06/30/2018 Other synovitis and tenosynovitis, left Tim Cross MD Onset: 06/30/2018 ankle and foot Other synovitis and tenosynovitis, Tim Cross MD Onset: 06/30/2018 right ankle and foot Chronic ischemic heart disease Collette Wood M.D. Onset: 07/23/2018 Atrial flutter Collette Wood M.D. Onset: 07/23/2018 Tachycardia-induced cardiomyopathy Collette Wood M.D. Onset: 07/29/2018 Acquired left claw foot Tim Cross MD Onset: 10/12/2018 Tendon contracture Tim Cross MD Onset: 10/12/2018 Cardiomyopathy Collette Wood M.D. Onset: 01/14/2019 Social History Type Date Description Comments Sex Unknown Tobacco Use Start: Unknown Patient is a current cigarette smoker, smokes every day Tobacco Use Start: Unknown currently smokes 1/2 Pack Daily Smoking Status Reviewed: 07/22/19 currently smokes 1/2 Pack Daily Smokeless Tobacco Never Used Smokeless Tobacco ETOH Use Currently consumes alcohol ETOH Use Drinks 3 Alcoholic Beverages Per Week Tobacco Use Start: Unknown Patient is a current smoker, smokes every day Recreational Drug Use Current Drug User Medical Marijuana (vaper) Exercise Type/Frequency Does not exercise Allergies, Adverse Reactions, Alerts Active Allergies Reaction Severity Comments Date Humira headache, not feeling well, went to 04/21/2014 ER Varenicline Tartrate PARTS FABRICATOR reaction 10/02/2017 Cymbalta GI upset 10/02/2017 Effexor GI upset 10/02/2017 Inactive Allergies NKDA 03/28/2009 NKDA 04/21/2014 Medications Active Medications SIG Qnty Indications Ordering Date Provider Simponi Aria 2 mg/kg iv Torito Garber, 07/01/2019 50mg/4ML infused over 30 M.D. Solution minutes at weeks 0 and 4, then every 8 weeks is the dose Oxycodone HCL 1 tabs by mouth 10tabs Tim Cross, 06/28/2019 5mg Tablets every 6 hours as MD needed Testosterone Gel Torito Garber, 04/26/2019 MMary Metoprolol Succinate ER 1.5 tabs by 135tabs I48.92 Drea Mena, 2018 mouth at N.P. 50mg Tablets ER 24HR nighttime Vitamin B-12 1 by mouth every Unknown 500mcg Tablets day Multivitamin Adult 1 by mouth every Unknown Tablets day Vitamin D-3 1 by mouth every Unknown 5000Unit day Tablets Citalopram Hydrobromide 1 by mouth every Unknown day 20mg Tablets Medical Marijuana vaper twice day Unknown prn Eliquis 1 by mouth twice 180tabs Collette Wood, 5mg Tablets a day M.DAbdifatah Metformin HCL 1 by mouth twice Unknown 500mg Tablets a day Hydrocodone-Acetaminoph 1 or 2 tabs by Unknown en mouth every 4 5-325mg Tablets hours as needed for pain Gabapentin 2 by mouth three Unknown 100mg Capsules times daily Folic Acid 2 by mouth every Unknown 1mg Tablets day Cyclobenzaprine HCL one by mouth 60tabs Unknown 10mg three times a Tablets day as needed spasm Aluminum Lactate Cream Unknown For Feet Milk Thistle 2 po qd Unknown 150mg Capsules Vitamin C 1 po qd Unknown 500mg Tablets ER Multivitamins 1 po qd 30tabs Unknown Tablets Fish Oil Double daily Unknown Strength 1200mg Capsules History Medications Otezla take 1 tablet by 90tabs Torito Garber, 06/02/2019 - 30mg mouth twice a day M.D. 07/22/2019 Tablets (after finishing the sample pack) Medications Administered in Office Medication SIG Qnty Indications Ordering Provider Date Records Fee Collette Wood M.D. 05/20/2019 Injection No Injection Adelina Solis M.D. 06/23/2018 Injection Depomedrol 40MG Adelina Solis M.D. 06/23/2018 Injection PPD Everette Robert M.D. 11/15/2010 Injection Immunizations CPT Code Status Date Vaccine Reaction Lot # [id number] Given 07/22/2019 Influenza Virus Vaccine, Patient denies ever [id number] Quadrivalent, Split, having a serious Preservative Free reaction to eggs or egg products, ever having a serious reaction or other problem after getting influenza vaccination, ever being diagnosed with Oldmhtm-Yqqdz-Ycfxijpz, possibility of being , fever or moderate/severe illness today, allergy to latex. Patient verifies "I have read or had explained to me the information about influenza and influenza vaccine. I have had a chance to ask questions that were answered to my satisfaction. I believe I understand the benefits and risks of influenza vaccine and ask that the vaccine be given to me." Patient tolerated injection w/ no immediate adverse effect. 23990 Given 07/05/2013 Flu Vaccine Split Virus 1345 4p Preservative Free For Indiv 3Yr Older Vital Signs Date Vital Result Comment 07/22/2019 9:53am Height 66 inches 5'6" Heart Rate 73 /min BP Systolic Sitting 126 mmHg BP Diastolic Sitting 78 mmHg Body Temperature 97.9 F Pain Level 6 O2 % BldC Oximetry 97 % 07/13/2019 1:36pm Height 66 inches 5'6" Weight 202.00 lb Respiratory Rate 16 /min Pain Level 4 BMI (Body Mass Index) 32.6 kg/m2 Results Test Acquired Date Facility Test Result H/L Range Note Laboratory test 06/28/2019 [facility] Point of Care 192 mg/dL High 70-100 [address] [place] [address] [phone] Laboratory test 06/02/2019 [facility] Erythrocyte Sed 2 mm/Hr Normal 0-14 [address] Rate [place], [place] [id number] [phone] C Reactive Protein 10.60 mg/L High <8.01 3 CBC Auto 06/02/2019 [facility] White Blood 9.7 10^3/uL Normal 3.5-10.[address] [place] [address] [phone] Red Blood Count 4.90 10^6/uL Normal 4.18-5.48 Hemoglobin 16.0 g/dL Normal 14.0-18.0 Hematocrit 46 % Normal 42-52 Mean Corpuscular Volume 95 fL High 80-94 Mean Corpuscular Hemoglobin 33 pg High 27-31 Mean Corpuscular HGB Conc 35 g/dL Normal 31-36 Red Cell Distribution Width 14 % Normal 10-15 Platelet Count 214 10^3/uL Normal 150-450 Mean Platelet Volume 8.6 fL Normal 7.4-10.4 Abs Neutrophils 6.5 10^3/uL Normal 1.5-7.7 Abs Lymphocytes 2.3 10^3/uL Normal 1.0-4.8 Abs Monocytes 0.6 10^3/uL Normal 0-0.8 Abs Eosinophils 0.2 10^3/uL Normal 0-0.6 Abs Basophils 0.0 10^3/uL Normal 0-0.2 Abs Nucleated RBC 0.0 10^3/uL Granulocyte % 67.0 % Lymphocyte % 23.6 % Monocyte % 6.7 % Eosinophil % 2.3 % Basophil % 0.4 % Nucleated Red Blood Cells % 0.1 Comp Metabolic 06/02/2019 [facility] Sodium 139 mmol/L Normal 135-[address] [place] [address] [phone] Potassium 4.2 mmol/L Normal 3.5-5.0 Chloride 102 mmol/L Normal 101-111 Co2 Carbon Dioxide 29 mmol/L Normal 22-32 Anion Gap 8 mmol/L Normal 2-11 Glucose 174 mg/dL High 70-100 Blood Urea Nitrogen 12 mg/dL Normal 6-24 Creatinine 0.79 mg/dL Normal 0.67-1.17 BUN/Creatinine Ratio 15.2 Normal 8-20 Calcium 9.7 mg/dL Normal 8.6-10.3 Total Protein 6.4 g/dL Normal 6.4-8.9 Albumin 4.3 g/dL Normal 3.2-5.2 Globulin 2.1 g/dL Normal 2-4 Albumin/Globulin Ratio 2.0 Normal 1-3 Total Bilirubin 0.50 mg/dL Normal 0.2-1.0 Alkaline Phosphatase 109 U/L High 34-104 Alt 96 U/L High 7-52 Ast 65 U/L High 13-39 Egfr Non- 104.2 >60 Egfr 126.1 >60 4 Quantiferon-TB 06/02/2019 [facility] QuantiferonTb Negative Negative [address] [place] [address] [phone] TB1 Ag minus Nil Result 0.01 IU/mL TB2 Ag minus Nil Result 0.00 IU/mL Mitogen minus Nil Result 13.23 IU/mL Nil Result 0.03 IU/mL Iron & Iron Binding 06/02/2019 [facility] Iron 155 g/dL Normal 50-[address] [place] [address] [phone] Unsaturated Iron Binding 216 g/dL Total Iron Binding Capacity 371 g/dL Normal 250-450 Transferrin 265 mg/dL Normal 203-362 % Iron Saturation 42 % Normal 15-55 Laboratory test 06/02/2019 [facility] Ferritin 546.1 High 24- 336 [address] ng/mL [place], [place] [id number] [phone] Laboratory test 04/26/2019 [facility] Erythrocyte Sed 1 mm/Hr Normal 0-[address] [place] [address] [phone] C Reactive Protein 12.70 mg/L High <8.01 Liver Function 04/26/2019 [facility] Total Protein 6.8 g/dL Normal 6.4-8.[address] [place] [address] [phone] Albumin 4.5 g/dL Normal 3.2-5.2 Globulin 2.3 g/dL Normal 2-4 Albumin/Globulin Ratio 2.0 Normal 1-3 Total Bilirubin 0.40 mg/dL Normal 0.2-1.0 Direct Bilirubin 0.10 mg/dL Normal 0.03-0.18 Indirect Bilirubin 0.3 mg/dL Normal 0.3-1.0 Alkaline Phosphatase 102 U/L Normal 34-104 Alt 84 U/L High 7-52 Ast 59 U/L High 13-39 Laboratory test 04/26/2019 [facility] Vitamin D 53.5 ng/mL High 20-50 [address] Total 25(Oh) [place] [address] [phone] 1 Behavioral Sciences Department Chair: [id number] 2 Please check labs this week 3 Please check labs this week 4 Because ethnic data is not always readily available, this report includes an eGFR for both -Americans and non- Americans. The National Kidney Disease Education Program (NKDEP) does not endorse the use of the MDRD equation for patients that are not between the ages of 18 and 70, are , have extremes of body size, muscle mass, or nutritional status, or are non- or non-. According to the National Kidney Foundation, irrespective of diagnosis, the stage of the disease is based on the level of kidney function: Stage Description GFR(mL/min/1.73 m(2)) 1 Kidney damage with normal or decreased GFR 90 2 Kidney damage with mild decrease in GFR 60-89 3 Moderate decrease in GFR 30-59 4 Severe decrease in GFR 15-29 5 Kidney failure <15 (or dialysis) 5 M. tuberculosis infection NOT likely 6 Please check labs this week 7 Total 25-Hydroxyvitamin D2 and D3 (25-OH-VitD) <10 ng/mL (severe deficiency) 10-19 ng/mL (mild to moderate deficiency) 20-50 ng/mL (optimum levels) 51-80 ng/mL (increased risk of hypercalciuria) >80 ng/mL (toxicity possible) Procedures Date Code Description Status 07/13/2019 83553 application of short leg splint Completed 07/06/2019 47175 application of short leg splint Completed 06/28/2019 10849 Correction Hammertoe Completed 06/28/2019 00594 Correction Hammertoe Completed 06/28/2019 89488 Correction Hammertoe Completed 06/28/2019 91683 Correction Hammertoe Completed 06/28/2019 94516 Gastrocnemius Recession Completed 06/28/2019 54456 Gastrocnemius Recession Completed 06/17/2019 48879 EKG Tracing & Interpretation Completed 05/06/2019 26124 EKG Tracing & Interpretation Completed 03/07/2019 99122 Holter Monitor Review (24 hr)dr review & interp only Completed 03/01/2019 29228 ECG Monitor/Recording W/Visual Superimposition Scanning Completed 02/15/2019 08019 EKG Tracing & Interpretation Completed Medical Devices Description No Information Available Encounters Type Date Location Provider Dx Diagnosis Office Visit 07/22/2019 Rheumatology Torito Garber L40.50 Arthropathic 9:40a [facility] psoriasis, unspecified Z79.899 Other custodial (current) drug therapy 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 psoriasis, unspecified Z79.899 Other custodial (current) drug therapy F17.210 Nicotine dependence, cigarettes, uncomplicated I42.9 Cardiomyopathy, unspecified Office Visit 05/06/2019 1:10p [facility] Collette Wood I48.92 Unspecified [facility] atrial flutter I10 Essential (primary) hypertension I42.8 Other cardiomyopathies Office Visit 04/26/2019 Rheumatology Torito L40.Estrella Arthropathic 2:00p [facility] M.D. psoriasis, unspecified Z79.899 Other custodial (current) drug therapy M25.561 Pain in right knee E55.9 Vitamin D deficiency, unspecified F17.210 Nicotine dependence, cigarettes, uncomplicated Office Visit 04/04/2019 11:30a [facility] Drea Delgado I48.92 Unspecified Rajesh N.Chuck atrial flutter R94.31 Abnormal electrocardiogram [ECG] [EKG] I42.8 Other cardiomyopathies I10 Essential (primary) hypertension Z72.0 Tobacco use Office Visit 02/15/2019 2:00p [facility] Drea Delgado I48.92 Unspecified Of [facility] Mena N.PAbdifatah atrial flutter I42.8 Other cardiomyopathies I10 Essential (primary) hypertension Assessments Date Code Description Provider 07/22/2019 L40.50 Arthropathic psoriasis, unspecified Torito Garber M.D. 07/22/2019 Z79.899 Other rodent exterminator (current) drug therapy Torito Garber M.D. 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 07/22/2019 E55.9 Vitamin D deficiency, unspecified Torito Garber M.D. 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), left ankle Tim Cross MD 07/13/2019 M20.5x2 Other deformities of toe(s) (acquired), left Tim Cross MD foot 07/13/2019 M65.872 Other synovitis and tenosynovitis, left ankle Tim Cross MD and foot 07/06/2019 M67.02 Short Achilles tendon (acquired), left ankle Tim Cross MD 07/06/2019 M20.5x2 Other deformities of toe(s) (acquired), left Tim Cross MD foot 07/06/2019 M65.872 Other synovitis and tenosynovitis, left ankle Tim Cross MD and foot 06/28/2019 M67.02 Short Achilles tendon (acquired), left ankle Genoveva Wilson RPA-C 06/28/2019 M67.02 Short Achilles tendon (acquired), left ankle Tim Cross MD 06/28/2019 M65.872 Other synovitis and tenosynovitis, left ankle Genoveva Wilson RPA-C and foot 06/28/2019 M65.872 Other synovitis and tenosynovitis, left ankle Tim Cross MD and foot 06/28/2019 M20.5x2 Other deformities of toe(s) (acquired), left Genoveva Wilson RPA-C foot 06/28/2019 M20.5x2 Other deformities of toe(s) (acquired), left Tim Cross MD foot 06/17/2019 I42.9 Cardiomyopathy, unspecified Nurse Visit IC 06/17/2019 R94.31 Abnormal electrocardiogram [ECG] [EKG] Nurse Visit IC 06/06/2019 L40.50 Arthropathic psoriasis, unspecified Tim Cross MD 06/06/2019 M20.5x2 Other deformities of toe(s) (acquired), left Tim Cross MD foot 06/06/2019 M20.5x1 Other deformities of toe(s) (acquired), right Tim Cross MD foot 06/06/2019 M65.872 Other synovitis and tenosynovitis, left ankle Tim Cross MD and foot 06/06/2019 M67.02 Short Achilles tendon (acquired), left ankle Tim Cross MD 06/06/2019 M67.01 Short Achilles tendon (acquired), right ankle Tim Cross MD 06/02/2019 L40.50 Arthropathic psoriasis, unspecified Torito Garber M.D. 06/02/2019 Z79.899 Other custodial (current) drug therapy Torito Garber M.D. 06/02/2019 F17.210 Nicotine dependence, cigarettes, Torito Garber M.D. uncomplicated 06/02/2019 I42.9 Cardiomyopathy, unspecified Torito Garber M.D. 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 Infarc 05/20/2019 I25.2 Old myocardial infarction Collette Wood M.D. 05/20/2019 I48.3 Typical atrial flutter Collette Wood M.D. 05/20/2019 I48.92 Unspecified atrial flutter Collette Wood M.D. 05/06/2019 I48.92 Unspecified atrial flutter Collette Wood M.D. 05/06/2019 I10 Essential (primary) hypertension Collette Wood M.D. 05/06/2019 I42.8 Other cardiomyopathies Collette Wood M.D. 04/26/2019 L40.50 Arthropathic psoriasis, unspecified Torito Garber M.D. 04/26/2019 Z79.899 Other rodent exterminator (current) drug therapy Torito Garber M.D. 04/26/2019 M25.561 Pain in right knee Torito Garber M.D. 04/26/2019 E55.9 Vitamin D deficiency, unspecified Torito Garber M.D. 04/26/2019 F17.210 Nicotine dependence, cigarettes, Torito Garber M.D. uncomplicated 04/04/2019 I48.92 Unspecified atrial flutter Drea Mena, N.P. 04/04/2019 R94.31 Abnormal electrocardiogram [ECG] [EKG] Drea Mena N.P. 04/04/2019 I42.8 Other cardiomyopathies Drea Mena, N.P. 04/04/2019 I10 Essential (primary) hypertension Drea Mena, N.P. 04/04/2019 Z72.0 Tobacco use Drea Mena N.P. 03/07/2019 I48.92 Unspecified atrial flutter Collette Wood M.D. 03/01/2019 I48.92 Unspecified atrial flutter Nurse Visit IC 02/15/2019 R94.31 Abnormal electrocardiogram [ECG] [EKG] Collette Wood M.D. 02/15/2019 I48.92 Unspecified atrial flutter Drea Mena, N.P. 02/15/2019 I42.8 Other cardiomyopathies Drea Mena, N.P. 02/15/2019 I10 Essential (primary) hypertension Drea Mena, N.P. Plan of Treatment Future Appointment(s):09/21/2019 10:40 am - Torito Garber M.D. at [facility]08/12/2019 10:15 am - Tim Cross MD at [facility] at [facility]2607/13/2019 - Tim Cross, MDM67.02 Short Achilles tendon (acquired), left mldvvI93.5x2 Other deformities of toe(s) (acquired), left footNew Xrays: Foot Left 3+ VWS, Ordered: 07/13/19Follow up:Follow Up: 4 cncrwM68.872 Other synovitis and tenosynovitis, left ankle and foot Functional Status Description No Information Available Mental Status Description No Information Available Referrals Refer to Reason for Referral Status Appt Date Rojelio Carmona MD aflutter ablation Sent 03/28/[address] [place] [address] [address] [place] [address] [phone]
--- OUTSIDE RECORDS SUMMARY | 2019-08-16 14:52 | XMS REPORT | Continuity of Care Document ---
:1970 External Reference #:[id number] Author Name Tim Cross MD (transmitted by agent of provider Michelle Ravi) Address [address] [place] [id number] Care Team Providers Name Role Phone Renzo Martinez MD - Internal Medicine Care Team Information Practice Manager [phone] Problems Active Problems Provider Date Malignant essential hypertension Daquan Sommer M.D. Onset: 2011 Electrocardiogram abnormal Daquan Sommer M.D. Onset: 05/17/2012 Chest pain Daquan Sommer M.D. Onset: 05/17/2012 Mixed hyperlipidemia Daquan Sommer M.D. Onset: 05/17/2012 Psoriasis with arthropathy Everette Robert M.D. Onset: 06/17/2012 Medications [facility] (Current) Use Everette Robert M.D. Onset: 06/17/2012 Encounter Psoriasis Everette Robert M.D. Onset: 03/24/2014 Eruption Everette Robert M.D. Onset: 04/14/2014 Disorder of muscle Everette Robert M.D. Onset: 04/14/2014 Type 2 diabetes mellitus with diabetic Tim Cross MD Onset: 10/02/2017 polyneuropathy Thoracic and lumbosacral neuritis Tim Cross MD Onset: 03/16/2018 Brachial neuritis Tim Cross MD Onset: 04/12/2018 Hammer toe Tim Cross MD Onset: 04/12/2018 Arthritis mutilans Adelina Solis M.D. Onset: 05/31/2018 Localized, primary osteoarthritis of Adelina Solis M.D. Onset: 05/31/2018 the pelvic region and [...] smokes 1/2 Pack Daily Smoking Status Reviewed: 08/12/19 currently smokes 1/2 Pack Daily Smokeless Tobacco [...] well, went to 04/21/2014 ER Varenicline Tartrate CONTACT LENS FITTER reaction 10/02/2017 Cymbalta GI upset 10/02/2017 Effexor [...] MD needed Testosterone Gel Torito Garber, 04/26/2019 M.D. Metoprolol Succinate ER 1.5 tabs by 135tabs I48.92 Drea Sandy Mena, 2018 mouth at N.P. 50mg Tablets [...] 06/02/2019 - 30mg mouth twice a day M.DAbdifatah 07/22/2019 Tablets (after finishing the sample pack) Medications Administered in Office Medication SIG Qnty Indications Ordering Provider Date Records Fee Collette Wood M.D. 05/20/2019 Injection No Injection Adelina Solis M.D. 06/23/2018 Injection Depomedrol 40MG Adelina Solis M.D. 06/23/2018 Injection ANDREA Robert M.D. 11/15/2010 Injection Immunizations CPT Code Status Date Vaccine Reaction Lot # [id number] Given 07/22/2019 Influenza Virus Vaccine, Patient denies ever [id number] Quadrivalent, Split, having a serious Preservative Free reaction to eggs or egg products, ever having a serious reaction or other problem after getting influenza vaccination, ever being diagnosed with [place]-Bbfpr-Nzmdsybs, possibility of being , fever or moderate/severe [...] tolerated injection w/ no immediate adverse effect. 35135 Given 07/05/2013 Flu Vaccine Split Virus 1345 4p Preservative Free For Indiv 3Yr Older Vital Signs Date Vital Result Comment 08/12/2019 10:22am Height 66 inches 5'6" Weight 205.00 lb Heart Rate 66 /min BP Systolic 128 mmHg BP Diastolic 84 mmHg Body Temperature 97.8 F Pain Level 4 BMI (Body Mass Index) 33.1 kg/m2 07/22/2019 9:53am Height 66 inches 5'6" Heart Rate 73 /min BP Systolic Sitting 126 mmHg BP Diastolic Sitting 78 mmHg Body Temperature 97.9 F Pain Level 6 O2 % BldC Oximetry 97 % Results Test Acquired Facility Test Result H/L Range Note Date Hemochromatosis 07/22/2019 [facility] Hemochromatosis See 1 Hereditary Dna [address] [place] [address] [phone] Hemochromatosis Specimen WB Whole Blood Hemochromatosis Method See Comment 2 Hemochromatosis Results See Comment 3 Hemochromatosis Interpretation See Comment 4 Hemochromatosis Reviewed By See Comment 5 Laboratory test 06/28/2019 [facility] Point of Care 192 mg/dL High 70-100 [address] [place] [address] [phone] Laboratory test 06/02/2019 [facility] Erythrocyte Sed 2 mm/Hr Normal 0-14 [address] [place] [address] [phone] C Reactive Protein 10.60 mg/L High <8.01 8 CBC Auto 06/02/2019 [facility] White Blood 9.7 10^3/uL Normal 3.5-10.[address] Count [place], [place] [id number] [phone] Red Blood Count 4.90 10^6/uL Normal 4.18-5.48 [...] Blood Cells % 0.1 Comp Metabolic 06/02/2019 [facility] Sodium 139 mmol/L Normal 135-[address] [place] [address] [phone] Potassium 4.2 mmol/L Normal 3.5-5.0 Chloride 102 [...] Egfr Non- 104.2 >60 Egfr 126.1 >60 9 Quantiferon-TB 06/02/2019 [facility] QuantiferonTb Negative Negative [address] [place] [address] [phone] TB1 Ag minus Nil Result 0.01 IU/mL TB2 Ag minus Nil Result 0.00 IU/mL Mitogen minus Nil Result 13.23 IU/mL Nil Result 0.03 IU/mL Iron & Iron Binding 06/02/2019 [facility] Iron 155 g/dL Normal 50-[address] [place] [address] [phone] Unsaturated Iron Binding 216 g/dL Total Iron Binding Capacity 371 g/dL Normal 250-450 Transferrin 265 mg/dL Normal 203-362 % Iron Saturation 42 % Normal 15-55 Laboratory test 06/02/2019 [facility] Ferritin 546.1 High 24- 336 [address] ng/[place] [address] [phone] Laboratory test 04/26/2019 [facility] Vitamin D 53.5 High 20- 50 [address] Total 25(Oh) ng/[place] [address] [phone] Liver Function 04/26/2019 [facility] Total Protein 6.8 g/dL Normal 6.4-8.[address] [place] [address] [phone] Albumin 4.5 g/dL Normal 3.2-5.2 Globulin 2.3 g/dL Normal 2-4 Albumin/Globulin Ratio 2.0 Normal 1-3 Total Bilirubin 0.40 mg/dL Normal 0.2-1.0 Direct Bilirubin 0.10 mg/dL Normal 0.03-0.18 Indirect Bilirubin 0.3 mg/dL Normal 0.3-1.0 Alkaline Phosphatase 102 U/L Normal 34-104 Alt 84 U/L High 7-52 Ast 59 U/L High 13-39 Laboratory test 04/26/2019 [facility] Erythrocyte Sed 1 mm/Hr Normal 0-[address] [place] [address] [phone] C Reactive Protein 12.70 mg/L High <8.01 1 RESULT: COMPLEX (SEE RESULT AND INTERPRETATION) 2 A multiplex PCR based assay utilizing the Gre[employer] Array platform was used to test for the following three mutations in the HFE gene; C282Y, H63D, and S65C. Because of the minimal effect on iron metabolism associated with the S65C mutation, it is only reported when it is found with the C282Y mutation (i.e. if the patient has the C282Y/S65C genotype). 3 C282Y: Not detected. H63D: Not detected. 4 This result reduces the risk but does not rule out either a diagnosis of or predisposition for hereditary hemochromatosis (HH). In the [place] population, approximately 5 to 8% of individuals with HH do not have either the p.C282Y or p.H63D mutation. For other ethnicities, the proportion of individuals with HH who do not have either the p.C282Y or p.H63D alteration may differ. This assay does not rule out the presence of other disease-causing mutations in the HFE gene or in other genes associated with hemochromatosis. Genotyping results should be interpreted in the context of clinical findings, family history, and other laboratory testing (e.g. serum transferrin-iron saturation and serum ferritin). Genetic testing and other laboratory testing of an affected family member can determine if this result is of predictive value for this individual. A genetic consultation may be of benefit. ADDITIONAL INFORMATION An online research opportunity called Emissary ([email or web address]), a project of [employer], is available for the recipient of this genetic test. This patient registry collects de-identified genetic and health information to advance the knowledge of genetic variants. [facility] is a collaborator of [employer]. This may not be applicable for all tests. Test results should be interpreted in the context of clinical findings, family history, and other laboratory data. Misinterpretation of results may occur if the information provided is inaccurate or incomplete. Rare polymorphisms exist that could lead to false-negative or false-positive results. If results obtained do not match the clinical findings, additional testing should be considered. Bone Marrow transplants from allogenic donors will interfere with testing. Call [facility] for instructions for testing patients who have received a bone marrow transplant. Multiple in-silico evaluation tools may have been used to assist in the interpretation of these results. Of note, the sensitivity and specificity of these tools for the determination of pathogenicity is currently unvalidated. This test was developed and its performance characteristics determined by [facility] in a manner consistent with CLIA requirements. This test has not been cleared or approved by the U.S. Food and Drug Administration. 5 RESULT: Josue Gill M.D. Test Performed by: [place] [address] Loan Funder: Yariel Mcclure M.D. Ph.D.; CLIA# [id number] 6 Battery Charger Conveyor Line: [id number] Please check labs this week 8 Please check labs this week 9 Because ethnic data is not always readily [...] 15-29 5 Kidney failure <15 (or dialysis) 10 M. tuberculosis infection NOT likely 11 Please check labs this week 12 Total 25-Hydroxyvitamin D2 and D3 (25-OH-VitD) <10 ng/mL (severe deficiency) 10-19 ng/mL (mild to moderate deficiency) 20-50 ng/mL (optimum levels) 51-80 ng/mL (increased risk of hypercalciuria) >80 ng/mL (toxicity possible) Procedures Date Code Description Status 07/13/2019 25758 application of short leg splint Completed 07/06/2019 86312 application of short leg splint Completed 06/28/2019 56831 Correction Hammertoe Completed 06/28/2019 09229 Correction Hammertoe Completed 06/28/2019 72411 Correction Hammertoe Completed 06/28/2019 07525 Correction Hammertoe Completed 06/28/2019 58621 Gastrocnemius Recession Completed 06/28/2019 29343 Gastrocnemius Recession Completed 06/17/2019 10663 EKG Tracing & Interpretation Completed 05/06/2019 29588 EKG Tracing & Interpretation Completed 03/07/2019 39552 Holter Monitor Review (24 hr)dr metzger & yina only Completed 03/01/2019 63541 ECG Monitor/Recording W/Visual Superimposition Scanning Completed 02/15/2019 48412 EKG Tracing & Interpretation Completed Medical Devices Description No Information Available Encounters Type Date Location Provider Dx Diagnosis Office Visit 07/22/2019 [facility] Torito Garber L40.50 Arthropathic 9:40a [facility] psoriasis, unspecified Z79.899 Other intermediate frame tender (current) drug therapy E83.10 Disorder of iron metabolism, unspecified Z23 Encounter for [facility] [place] unspecified M20.5x2 Other deformities of toe(s) (acquired), left foot M20.5x1 Other deformities of toe(s) (acquired), right foot M65.872 Other synovitis and tenosynovitis, left ankle and foot 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 psoriasis, unspecified Z79.899 Other skilled nursing (current) drug therapy F17.210 Nicotine dependence, cigarettes, uncomplicated I42.9 Cardiomyopathy, unspecified Office Visit 05/06/2019 1:10p [facility] Collette Wood, I48.92 Unspecified [facility] atrial flutter I10 Essential (primary) hypertension I42.8 Other cardiomyopathies Office Visit 04/26/2019 Rheumatology Torito L40.50 Arthropathic 2:00p [facility] M.D. psoriasis, unspecified Z79.899 Other skilled nursing (current) drug therapy M25.561 Pain in right knee E55.9 Vitamin D deficiency, unspecified F17.210 Nicotine dependence, cigarettes, uncomplicated Office Visit 04/04/2019 11:30a [facility] Drea S. I48.92 Unspecified Foster, N.P. atrial flutter R94.31 Abnormal electrocardiogram [ECG] [EKG] I42.8 Other cardiomyopathies I10 Essential (primary) hypertension Z72.0 Tobacco use Office Visit 02/15/2019 2:00p [facility] Drea S. 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 07/22/2019 Z79.899 Other intermediate frame tender (current) drug therapy Torito Garber M.D. 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 07/22/2019 Z23 Encounter for immunization Torito Garber M.D. 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 06/02/2019 Z79.899 Other skilled nursing (current) drug therapy Torito Garber M.D. 06/02/2019 [...] unspecified Torito Garber M.D. 04/26/2019 Z79.899 Other intermediate frame tender (current) drug therapy Torito Garber M.D. 04/26/2019 M25.561 Pain in right knee Torito Garber M.D. 04/26/2019 E55.9 Vitamin D deficiency, unspecified Torito Garber M.D. 04/26/2019 F17.210 Nicotine dependence, cigarettes, Torito Garber M.D. uncomplicated 04/04/2019 I48.92 Unspecified atrial flutter Drea Mena, N.P. 04/04/2019 R94.31 Abnormal electrocardiogram [ECG] [EKG] Drea Mena, N.P. 04/04/2019 I42.8 Other cardiomyopathies Drea Mena, N.P. 04/04/2019 I10 Essential (primary) hypertension Drea Mena, N.P. 04/04/2019 Z72.0 Tobacco use Drea Mena, N.P. 03/07/2019 I48.92 Unspecified atrial flutter Collette Wood M.D. 03/01/2019 I48.92 Unspecified atrial flutter Nurse Visit IC 02/15/2019 R94.31 Abnormal electrocardiogram [ECG] [EKG] Collette Wood M.D. 02/15/2019 I48.92 Unspecified atrial flutter Drea Mena, N.P. 02/15/2019 I42.8 Other cardiomyopathies Drea Mena, N.P. 02/15/2019 I10 Essential (primary) hypertension Drea Mena, N.P. Plan of Treatment Future Appointment(s):09/16/2019 11:00 am - Tim Cross [facility] at [id number]/21/2019 10:40 am - Torito Garber M.D. at [facility]08/12/2019 - Tim America, MDM20.5x2 Other deformities of toe(s ) (acquired), left footFollow up:Follow Up: 1 xcssmS81.02 Short Achilles tendon (acquired), left mfejpQ86.50 Arthropathic psoriasis, unspecified Functional Status Description No Information Available Mental Status Description No Information Available Referrals Refer to Reason for Referral Status Appt Date Rojelio Carmona MD aflutter ablation Sent 03/28/[address] [place] [address] [address] [address] [phone]
--- OUTSIDE RECORDS SUMMARY | 2019-08-16 14:53 | XMS REPORT | Continuity of Care Document ---
:1970 External Reference #:[id number] Author Name Tim Cross MD (transmitted by agent of provider Priya Giron) Address [address] [place] [id number] Care Team Providers Name Role Phone Renzo Martinez MD - Internal Medicine Care Team Information Home Economist Consumer Service Problems Active Problems Provider Date Malignant essential hypertension Daquan Sommer M.D. Onset: 2011 Electrocardiogram abnormal Daquan Sommer M.D. Onset: 05/17/2012 Chest pain Daquan Sommer M.D. Onset: 05/17/2012 Mixed hyperlipidemia Daquan Sommer M.D. Onset: 05/17/2012 Psoriasis with arthropathy Everette Robert M.D. Onset: 06/17/2012 Medications Bakery Manager (Current) Use Everette Robert M.D. Onset: 06/17/2012 [...] smokes 1/2 Pack Daily Smoking Status Reviewed: 07/13/19 currently smokes 1/2 Pack Daily Smokeless Tobacco [...] well, went to 04/21/2014 ER Varenicline Tartrate APPLICATION CHEMIST reaction 10/02/2017 Cymbalta GI upset 10/02/2017 Effexor [...] Tablets every 6 hours as MD needed Otezla take 1 tablet by 90tabs Torito Garber, 06/02/2019 30mg Tablets mouth twice a M.D. day (after finishing the sample pack) Testosterone Gel Torito Garber, 04/26/2019 M.D. Metoprolol [...] 180tabs Collette Wood, 5mg Tablets a day M.D. Metformin HCL 1 by mouth twice Unknown [...] daily Unknown Strength 1200mg Capsules History Medications Sotalol HCL (AF) 1 tab by mouth 180tabs I48.92 Drea Mena, 01/14/2019 - twice a day N.P. 02/15/2019 80mg Tablets Medications Administered in Office Medication SIG Qnty Indications Ordering Provider Date Records Fee Collette Wood M.D. 05/20/2019 Injection No Injection Adelina Solis M.D. 06/23/2018 Injection Depomedrol 40MG Adelina Solis M.D. 06/23/2018 Injection PPD Everette Robert M.D. 11/15/2010 Injection Immunizations CPT Code Status Date Vaccine Lot # [id number] Given 07/05/2013 Flu Vaccine Split Virus Preservative Free For 1345 4p Indiv 3Yr Older Vital Signs Date Vital Result Comment 07/13/2019 1:36pm Height 66 inches 5'6" Weight 202.00 lb Respiratory Rate 16 /min Pain Level 4 BMI (Body Mass Index) 32.6 kg/m2 07/06/2019 1:08pm Height 66 inches 5'6" Weight 202.00 lb Heart Rate 79 /min Respiratory Rate 18 /min Body Temperature 97.4 F Pain Level 7 BMI (Body Mass Index) 32.6 kg/m2 Results Test Acquired Date Facility Test Result H/L Range Note Laboratory test 06/28/2019 [facility] Point of Care 192 mg/dL High 70-100 [address] [place] [address] [phone] Laboratory test 06/02/2019 [facility] Erythrocyte Sed 2 mm/Hr Normal 0-14 [address] [place] [address] [phone] C Reactive Protein 10.60 mg/L High <8.01 3 CBC Auto 06/02/2019 [facility] White Blood 9.7 10^3/uL Normal 3.5-10.[address] [place] [address] [phone] Red Blood Count 4.90 10^6/uL Normal 4.18-5.48 [...] Blood Cells % 0.1 Comp Metabolic 06/02/2019 [facility] Sodium 139 mmol/L Normal 135-145 Panel [address] [place] [address] [phone] Potassium 4.2 mmol/L Normal 3.5-5.0 Chloride 102 [...] >60 Egfr 126.1 >60 4 Quantiferon-TB 06/02/2019 [facility] QuantiferonTb Negative Negative 5 Gold Plus [address] [facility] [place] [address] [phone] TB1 Ag minus Nil Result 0.01 IU/mL TB2 Ag minus Nil Result 0.00 IU/mL Mitogen minus Nil Result 13.23 IU/mL Nil Result 0.03 IU/mL Iron & Iron Binding 06/02/2019 [facility] Iron 155 g/dL Normal 50-212 Capacity [address] [place] [address] [phone] Unsaturated Iron Binding 216 g/dL Total Iron Binding Capacity 371 g/dL Normal 250-450 Transferrin 265 mg/dL Normal 203-362 % Iron Saturation 42 % Normal 15-55 Laboratory test 06/02/2019 [facility] Ferritin 546.1 High 24- 336 [address] ng/[place] [address] [phone] Laboratory test 04/26/2019 [facility] Vitamin D 53.5 ng/mL High 20-50 [address] Total 25(Oh) [place] [address] [phone] Liver Function 04/26/2019 [facility] Total Protein 6.8 g/dL Normal 6.4-8.[address] [place] [address] [phone] Albumin 4.5 g/dL Normal 3.2-5.2 Globulin 2.3 g/dL Normal 2-4 Albumin/Globulin Ratio 2.0 Normal 1-3 Total Bilirubin 0.40 mg/dL Normal 0.2-1.0 Direct Bilirubin 0.10 mg/dL Normal 0.03-0.18 Indirect Bilirubin 0.3 mg/dL Normal 0.3-1.0 Alkaline Phosphatase 102 U/L Normal 34-104 Alt 84 U/L High 7-52 Ast 59 U/L High 13-39 Laboratory test 04/26/2019 [facility] Erythrocyte Sed 1 mm/Hr Normal 0-[address] [place] [address] [phone] C Reactive Protein 12.70 mg/L High <8.01 1 Environmental Services Project Manager: [id number] 2 Please check labs this week 3 [...] possible) Procedures Date Code Description Status 07/13/2019 96236 application of short leg splint Completed 07/06/2019 34241 application of short leg splint Completed 06/28/2019 06443 Gastrocnemius Recession Completed 06/28/2019 11905 Gastrocnemius Recession Completed 06/28/2019 81641 Tenotomy Toe Percutaneous, Single Tendon Completed 06/28/2019 24855 Tenotomy Toe Percutaneous, Single Tendon Completed 06/28/2019 74688 Tenotomy Toe Percutaneous, Single Tendon Completed 06/28/2019 90119 Tenotomy Toe Percutaneous, Single Tendon Completed 06/28/2019 55630 Tenotomy Toe Percutaneous, Single Tendon Completed 06/28/2019 54604 Tenotomy Toe Percutaneous, Single Tendon Completed 06/28/2019 37606 Tenotomy Toe Percutaneous, Single Tendon Completed 06/28/2019 28111 Tenotomy Toe Percutaneous, Single Tendon Completed 06/28/2019 49419 Tenotomy Toe Percutaneous, Single Tendon Completed 06/28/2019 70664 Tenotomy Toe Percutaneous, Single Tendon Completed 06/28/2019 09843 Synovectomy Metatarsophalangeal JT Completed 06/28/2019 21168 Synovectomy Metatarsophalangeal JT Completed 06/28/2019 79941 Correction Hammertoe Completed 06/28/2019 10898 Correction Hammertoe Completed 06/28/2019 01681 Correction Hammertoe Completed 06/28/2019 75535 Correction Hammertoe Completed 06/28/2019 89230 Correction Hammertoe Completed 06/28/2019 89236 Correction Hammertoe Completed 06/28/2019 58883 Correction Hammertoe Completed 06/28/2019 98367 Correction Hammertoe Completed 06/28/2019 33073 Synovectomy Metatarsophalangeal JT Completed 06/28/2019 10798 Synovectomy Metatarsophalangeal JT Completed 06/28/2019 35417 Synovectomy Metatarsophalangeal JT Completed 06/28/2019 33714 Synovectomy Metatarsophalangeal JT Completed 06/28/2019 67410 Synovectomy Metatarsophalangeal JT Completed 06/28/2019 70354 Synovectomy Metatarsophalangeal JT Completed 06/17/2019 35524 EKG Tracing & Interpretation Completed 05/06/2019 57521 EKG Tracing & Interpretation Completed 03/07/2019 07151 Holter Monitor Review (24 hr) review & interp only Completed 03/01/2019 07107 ECG Monitor/Recording W/Visual Superimposition Scanning Completed 02/15/2019 86595 EKG Tracing & Interpretation Completed 01/19/2019 43999 Moderate Sedation Services; Same Phys Intl 15 Mins; PT >= Completed 5 Years 01/19/2019 43623 EKG, Interpretation Only Completed 01/19/2019 29638 Cardioversion Completed 01/18/2019 11897 ECHO Transthoracic, Real-Time 2D With Doppler And Color Completed Flow 01/18/2019 36868 ECHO Transthoracic, Real-Time 2D With Doppler And Color Completed Flow 01/14/2019 09657 EKG Tracing & Interpretation Completed Medical Devices Description No Information Available Encounters Type Date Location Provider Dx Diagnosis Office Visit 06/06/2019 [facility] Tim America L40.50 Arthropathic 9:15a at [place] psoriasis, unspecified M20.5x2 Other deformities of toe(s) (acquired), left foot M20.5x1 Other deformities of toe(s) (acquired), right foot M65.872 Other synovitis and tenosynovitis, left ankle and foot 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 psoriasis, unspecified Z79.899 Other fpc (current) drug therapy F17.210 Nicotine dependence, cigarettes, uncomplicated I42.9 Cardiomyopathy, unspecified Office Visit 05/06/2019 1:10p [facility] Collette Wood, I48.92 Unspecified Of Aron Santillan atrial flutter I10 Essential (primary) hypertension I42.8 Other cardiomyopathies Office Visit 04/26/2019 [facility] L40.50 Arthropathic 2:00p Services Of Aron Garber M.D. psoriasis, unspecified Z79.899 Other fpc (current) drug therapy M25.561 Pain in right knee E55.9 Vitamin D deficiency, unspecified F17.210 Nicotine dependence, cigarettes, uncomplicated Office Visit 04/04/2019 11:30a [facility] Rdea S. I48.92 Unspecified Rajesh, N.P. atrial flutter R94.31 Abnormal electrocardiogram [ECG] [EKG] I42.8 Other cardiomyopathies I10 Essential (primary) hypertension Z72.0 Tobacco use Office Visit 02/15/2019 2:00p [facility] Drea S. I48.92 Unspecified Of [place] Rajesh, N.P. atrial flutter I42.8 Other cardiomyopathies I10 Essential (primary) hypertension Office Visit 01/14/2019 9:00a [facility] Collette Wood I48.92 Unspecified Of [place] AT [facility] M.D. 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 E11.8 Type 2 diabetes mellitus with unspecified complications Assessments Date Code Description Provider 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), left Tim Cross MD ankle 07/13/2019 M20.5x2 Other deformities of toe(s) (acquired), Tim Cross MD left foot 07/13/2019 M65.872 Other synovitis and tenosynovitis, left Tim Cross MD ankle and foot 07/06/2019 M67.02 Short Achilles tendon (acquired), left Tim Cross MD ankle 07/06/2019 M20.5x2 Other deformities of toe(s) (acquired), Tim Cross MD left foot 07/06/2019 M65.872 Other synovitis and tenosynovitis, left Tim Cross MD ankle and foot 06/28/2019 M67.02 Short Achilles tendon (acquired), left TRISTIN Lares ankle 06/28/2019 M67.02 Short Achilles tendon (acquired), left Tim Cross MD ankle 06/28/2019 M65.872 Other synovitis and tenosynovitis, left [place] Lares ankle and foot 06/28/2019 M65.872 Other synovitis and tenosynovitis, left Tim Cross MD ankle and foot 06/28/2019 M20.5x2 Other deformities of toe(s) (acquired), [place] Lares left foot 06/28/2019 M20.5x2 Other deformities of toe(s) (acquired), Tim Cross MD left foot 06/17/2019 I42.9 Cardiomyopathy, unspecified Nurse Visit IC 06/17/2019 R94.31 Abnormal electrocardiogram [ECG] [EKG] Nurse Visit IC 06/06/2019 L40.50 Arthropathic psoriasis, unspecified Tim Cross MD 06/06/2019 M20.5x2 Other deformities of toe(s) (acquired), Tim Cross MD left foot 06/06/2019 M20.5x1 Other deformities of toe(s) (acquired), Tim Cross MD right foot 06/06/2019 M65.872 Other synovitis and tenosynovitis, left Tim Cross MD ankle and foot 06/06/2019 M67.02 Short Achilles tendon (acquired), left Tim Cross MD ankle 06/06/2019 M67.01 Short Achilles tendon (acquired), right Tim Cross MD ankle 06/02/2019 L40.50 Arthropathic psoriasis, unspecified Torito Garber M.D. 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 06/02/2019 F17.210 Nicotine dependence, cigarettes, Torito Garber M.D. uncomplicated 06/02/2019 I42.9 Cardiomyopathy, unspecified Torito Garber M.D. 05/20/2019 434.91 Occlusion Cerebral Artery Unspec W/ Collette Wood M.D. Cerebral Infarc 05/20/2019 I25.2 Old myocardial infarction Collette Wood M.D. 05/20/2019 I48.3 Typical atrial flutter Collette Wood M.D. 05/20/2019 I48.92 Unspecified atrial flutter Collette Wood M.D. 05/06/2019 I48.92 Unspecified atrial flutter Collette Wood M.D. 05/06/2019 I10 Essential (primary) hypertension Collette Wood M.D. 05/06/2019 I42.8 Other cardiomyopathies Collette Wood M.D. 04/26/2019 L40.50 Arthropathic psoriasis, unspecified Torito Garber M.D. 04/26/2019 Z79.899 Other fpc (current) drug therapy Torito Garber M.D. 04/26/2019 M25.561 Pain in right knee Torito Garber M.D. 04/26/2019 E55.9 Vitamin D deficiency, unspecified Torito Garber M.D. 04/26/2019 F17.210 Nicotine dependence, cigarettes, Torito Garber M.D. uncomplicated 04/04/2019 I48.92 Unspecified atrial flutter Drea Mena, N.P. 04/04/2019 R94.31 Abnormal electrocardiogram [ECG] [EKG] Drea Mena, N.P. 04/04/2019 I42.8 Other cardiomyopathies Drea SAbdifatah Mena, N.P. 04/04/2019 I10 Essential (primary) hypertension Drea Mena, N.P. 04/04/2019 Z72.0 Tobacco use Drea Mena, N.P. 03/07/2019 I48.92 Unspecified atrial flutter Collette Wood M.D. 03/01/2019 I48.92 Unspecified atrial flutter Nurse Visit IC 02/15/2019 R94.31 Abnormal electrocardiogram [ECG] [EKG] Collette Wood M.D. 02/15/2019 I48.92 Unspecified atrial flutter Drea Mena, N.P. 02/15/2019 I42.8 Other cardiomyopathies Drea SAbdifatah Mena, N.P. 02/15/2019 I10 Essential (primary) hypertension Drea Mena, N.P. 01/19/2019 R94.31 Abnormal electrocardiogram [ECG] [EKG] Mandeep Grissom M.D. 01/19/2019 I48.92 Unspecified atrial flutter Collette Wood M.D. 01/18/2019 I42.8 Other cardiomyopathies Collette Wood M.D. 01/18/2019 I42.8 Other cardiomyopathies Ica ECHO Schedule 01/18/2019 R60.0 Localized edema Collette Wood M.D. 01/18/2019 R60.0 Localized edema Ica ECHO Schedule 01/14/2019 I48.92 Unspecified atrial flutter Collette Wood M.D. 01/14/2019 I42.8 Other cardiomyopathies Collette Wood M.D. 01/14/2019 R60.0 Localized edema Collette Wood M.D. 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 01/14/2019 E11.8 Type 2 diabetes mellitus with unspecified Collette Wood M.D. complications Plan of Treatment Future Appointment(s):08/12/2019 10:15 am - Tim Cross MD at [facility] at [id number]/22/2019 9:40 am - Torito Garber M.D. at [facility]07/06/2019 - Tim Cross, MDM67.02 Short Achilles tendon ( acquired), left jyfvbH91.5x2 Other deformities of toe(s) (acquired), left footFollow up:Follow Up: as micpdwnpjE33.872 Other synovitis and tenosynovitis , left ankle and foot Functional Status Description No Information Available Mental Status Description No Information Available Referrals Refer to Reason for Referral Status Appt Date Rojelio Carmona MD aflutter ablation Sent 03/28/2019 [address] [facility] [address] [place] [address] [phone]
--- OUTSIDE RECORDS SUMMARY | 2019-08-16 14:53 | XMS REPORT | Continuity of Care Document ---
:1970 External Reference #:[id number] Author Name Tim Cross MD (transmitted by agent of provider Michelle Ravi) Address [address] [place] [id number] Care Team Providers Name Role Phone Renzo Martinez MD - Internal Medicine Care Team Information Filter Tank Tender Helper Head [phone] Problems Active Problems Provider Date Malignant essential hypertension Daquan Sommer M.D. Onset: 2011 Electrocardiogram abnormal Daquan Sommer M.D. Onset: 05/17/2012 Chest pain Daquan Sommer M.D. Onset: 05/17/2012 Mixed hyperlipidemia Daquan Sommer M.D. Onset: 05/17/2012 Psoriasis with arthropathy Everette Robert M.D. Onset: 06/17/2012 Medications Skilled Nursing (Current) Use Everette Robert M.D. Onset: 06/17/2012 [...] smokes 1/2 Pack Daily Smoking Status Reviewed: 07/06/19 currently smokes 1/2 Pack Daily Smokeless Tobacco [...] well, went to 04/21/2014 ER Varenicline Tartrate [place] reaction 10/02/2017 Cymbalta GI upset 10/02/2017 Effexor GI upset 10/02/2017 Inactive Allergies NKDA 03/28/2009 NKDA 04/21/2014 Medications Active Medications SIG Qnty Indications Ordering Date Provider Simtremainei Aria 2 mg/kg iv Torito Garber, 07/01/2019 [...] CPT Code Status Date Vaccine Lot # [id number] Given 07/05/2013 Flu Vaccine Split Virus Preservative Free For 1345 4p Indiv 3Yr Older Vital Signs Date Vital Result Comment 07/06/2019 1:08pm Height 66 inches 5'6" Weight 202.00 lb Heart Rate 79 /min Respiratory Rate 18 /min Body Temperature 97.4 F Pain Level 7 BMI (Body Mass Index) 32.6 kg/m2 06/17/2019 10:00am Weight 202.00 lb Heart Rate 80 /min BP Systolic Sitting 122 mmHg Rue Large Cuff BP Diastolic Sitting 70 mmHg Rue Large Cuff BP Systolic Standing 120 mmHg Rue Large Cuff BP Diastolic Standing 84 mmHg Rue Large Cuff Results Test Acquired Date Facility Test Result H/L Range Note Laboratory test 06/28/2019 [facility] Point of Care 192 mg/dL High 70-100 [address] [place] [address] [phone] Laboratory test 06/02/2019 [facility] Erythrocyte Sed 2 mm/Hr Normal 0-14 [address] Rate [place], [place] [id number] [phone] C Reactive Protein 10.60 mg/L High <8.01 3 CBC Auto 06/02/2019 [facility] White Blood 9.7 10^3/uL Normal 3.5-10.[address] [place] [address] [phone] Red Blood Count 4.90 10^6/uL Normal 4.18-5.48 [...] Blood Cells % 0.1 Comp Metabolic 06/02/2019 [facility] Sodium 139 mmol/L Normal 135-145 Panel [address] [place] [address] [phone] Potassium 4.2 mmol/L Normal 3.5-5.0 Chloride 102 [...] >60 Egfr 126.1 >60 4 Quantiferon-TB 06/02/2019 [facility] QuantiferonTb Negative Negative 5 Gold Plus 101 [place] [address] [phone] TB1 Ag minus Nil Result 0.01 IU/mL TB2 Ag minus Nil Result 0.00 IU/mL Mitogen minus Nil Result 13.23 IU/mL Nil Result 0.03 IU/mL Iron & Iron Binding 06/02/2019 [facility] Iron 155 g/dL Normal 50-212 Capacity [address] [place] [address] [phone] Unsaturated Iron Binding 216 g/dL Total Iron Binding Capacity 371 g/dL Normal 250-450 Transferrin 265 mg/dL Normal 203-362 % Iron Saturation 42 % Normal 15-55 Laboratory test 06/02/2019 [facility] Ferritin 546.1 High 24- 336 [address] ng/[place] [address] [phone] Laboratory test 04/26/2019 [facility] Erythrocyte Sed 1 mm/Hr Normal 0-[address] [place] [address] [phone] C Reactive Protein 12.70 mg/L High <8.01 Liver Function 04/26/2019 [facility] Total Protein 6.8 g/dL Normal 6.4-8.[address] [place] [address] [phone] Albumin 4.5 g/dL Normal 3.2-5.2 Globulin 2.3 g/dL Normal 2-4 Albumin/Globulin Ratio 2.0 Normal 1-3 Total Bilirubin 0.40 mg/dL Normal 0.2-1.0 Direct Bilirubin 0.10 mg/dL Normal 0.03-0.18 Indirect Bilirubin 0.3 mg/dL Normal 0.3-1.0 Alkaline Phosphatase 102 U/L Normal 34-104 Alt 84 U/L High 7-52 Ast 59 U/L High 13-39 Laboratory test 04/26/2019 [facility] Vitamin D 53.5 ng/mL High 20-50 [address] Total 25(Oh) [place] [address] [phone] Gas Fitter: [id number] Please check labs this week 3 [...] (toxicity possible) Procedures Date Code Description Status 07/06/2019 12557 application of short leg splint Completed 06/28/2019 99191 Gastrocnemius Recession Completed 06/28/2019 02331 Gastrocnemius Recession Completed 06/28/2019 09724 Tenotomy Toe Percutaneous, Single Tendon Completed 06/28/2019 00596 Tenotomy Toe Percutaneous, Single Tendon Completed 06/28/2019 65637 Tenotomy Toe Percutaneous, Single Tendon Completed 06/28/2019 77259 Tenotomy Toe Percutaneous, Single Tendon Completed 06/28/2019 51126 Tenotomy Toe Percutaneous, Single Tendon Completed 06/28/2019 61501 Tenotomy Toe Percutaneous, Single Tendon Completed 06/28/2019 58565 Tenotomy Toe Percutaneous, Single Tendon Completed 06/28/2019 17800 Tenotomy Toe Percutaneous, Single Tendon Completed 06/28/2019 98775 Tenotomy Toe Percutaneous, Single Tendon Completed 06/28/2019 57384 Tenotomy Toe Percutaneous, Single Tendon Completed 06/28/2019 76344 Synovectomy Metatarsophalangeal JT Completed 06/28/2019 33168 Synovectomy Metatarsophalangeal JT Completed 06/28/2019 48132 Correction Hammertoe Completed 06/28/2019 34007 Correction Hammertoe Completed 06/28/2019 09596 Correction Hammertoe Completed 06/28/2019 44477 Correction Hammertoe Completed 06/28/2019 93088 Correction Hammertoe Completed 06/28/2019 95429 Correction Hammertoe Completed 06/28/2019 60309 Correction Hammertoe Completed 06/28/2019 72817 Correction Hammertoe Completed 06/28/2019 73745 Synovectomy Metatarsophalangeal JT Completed 06/28/2019 95987 Synovectomy Metatarsophalangeal JT Completed 06/28/2019 70061 Synovectomy Metatarsophalangeal JT Completed 06/28/2019 45501 Synovectomy Metatarsophalangeal JT Completed 06/28/2019 61739 Synovectomy Metatarsophalangeal JT Completed 06/28/2019 60177 Synovectomy Metatarsophalangeal JT Completed 06/17/2019 22410 EKG Tracing & Interpretation Completed 05/06/2019 73470 EKG Tracing & Interpretation Completed 03/07/2019 20979 Holter Monitor Review (24 hr)dr metzger & interp only Completed 03/01/2019 22428 ECG Monitor/Recording W/Visual Superimposition Scanning Completed 02/15/2019 99457 EKG Tracing & Interpretation Completed 01/19/2019 89895 Moderate Sedation Services; Same Phys Intl 15 Mins; PT >= Completed 5 Years 01/19/2019 82686 EKG, Interpretation Only Completed 01/19/2019 60259 Cardioversion Completed 01/18/2019 63748 ECHO Transthoracic, Real-Time 2D With Doppler And Color Completed Flow 01/18/2019 86963 ECHO Transthoracic, Real-Time 2D With Doppler And Color Completed Flow 01/14/2019 19757 EKG Tracing & Interpretation Completed Medical Devices Description No Information Available Encounters Type Date Location Provider Dx Diagnosis Office Visit 06/06/2019 [facility] Tim [place] L40.50 Arthropathic 9:15a at [place] psoriasis, unspecified M20.5x2 Other deformities of toe(s) (acquired), left foot M20.5x1 Other deformities of toe(s) (acquired), right foot M65.872 Other synovitis and tenosynovitis, left ankle and foot 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 psoriasis, unspecified Z79.899 Other mcfp (current) drug therapy F17.210 Nicotine dependence, cigarettes, uncomplicated I42.9 Cardiomyopathy, unspecified Office Visit 05/06/2019 1:10p [facility] Collette Wood, I48.92 Unspecified Of Aron Santillan atrial flutter I10 Essential (primary) hypertension I42.8 Other cardiomyopathies Office Visit 04/26/2019 [facility] L40.50 Arthropathic 2:00p Services Of Aron Garber M.D. 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 I48.92 Unspecified Foster, N.P. atrial flutter R94.31 Abnormal electrocardiogram [ECG] [EKG] I42.8 Other cardiomyopathies I10 Essential (primary) hypertension Z72.0 Tobacco use Office Visit 02/15/2019 2:00p [facility] Drea S. I48.92 Unspecified Of Representative Rajesh, N.P. atrial flutter I42.8 Other cardiomyopathies I10 Essential (primary) hypertension Office Visit 01/14/2019 9:00a [facility] Collette Wood, I48.92 Unspecified Of [facility] M.[facility]. 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 06/02/2019 Z79.899 Other intermediate teacher (current) drug therapy Torito Garber M.D. 06/02/2019 [...] unspecified Torito Garber M.D. 04/26/2019 Z79.899 Other mcfp (current) drug therapy Torito Garber M.D. 04/26/2019 M25.561 Pain in right knee Torito aGrber M.D. 04/26/2019 E55.9 Vitamin D deficiency, unspecified [...] N.P. 02/15/2019 I10 Essential (primary) hypertension Drea SAbdifatah Mena, N.P. 01/19/2019 R94.31 Abnormal electrocardiogram [ECG] [...] Wood M.D. complications Plan of Treatment Future Appointment(s):07/13/2019 1:30 pm - Tim Cross MD at [facility] at [facility]/22/2019 9:40 am - Torito Garber M.D. at [facility]07/06/2019 - Tim Cross, MDM67.02 Short Achilles tendon ( acquired), left utmgxI06.5x2 Other deformities of toe(s) (acquired), left footFollow up:Follow Up: as hllkrbdpcD25.872 Other synovitis and tenosynovitis , left ankle and foot Functional Status Description No Information Available Mental Status Description No Information Available Referrals Refer to Dr Reason for Referral Status Appt Date Rojelio Carmona MD aflutter ablation Sent 03/28/[address] [place] [address] [address] [place] [address] [phone]
[2019-08-16 15:27] VITALS: BP 134/90
--- NOTE | 2019-08-18 05:39 | ED ---
Lower Extremity - HPI Summary HPI Summary: Pt is a89yo M with a history of recent surgery on 06/28/[address] Mills for left forefoot pain, synovitis, and claw toes as well as gastrocnemius arriving to the ED from the infusion center with L lower extremity swelling. Infusion not completed today d/t swelling. Concern for DVT, he comes to the ED. He states pins were recently removed on Thursday (4 days ago) and now is having swelling. Denies redness, warmth or fevers. Denies difficulty with ambulation or difficulty with flexion and extension. Pt is on eliquis BID. - History of Current Complaint Chief Complaint: EDExtremityLower Stated Complaint: LEG SWELLING Time Seen by Provider: 08/16/19 13:13 Hx Obtained From: Patient Mechanism Of Injury: Other - surgery Onset of Pain: Days Onset/Duration: Hours Severity Initially: Mild Severity Currently: Mild Pain Intensity: 4 Pain Scale Used: 0-10 Numeric Timing: Constant Location: Is Discrete @ - left lower extremity Character Of Pain: Aching Associated Signs And Symptoms: Positive: Swelling. Negative: Redness, Bruising , Weakness, Dizziness Aggravating Factor(s): Standing, Ambulation Alleviating Factor(s): Rest, Elevation Able to Bear Weight: No - Risk Factors Gout Risk Factors: Negative DVT Risk Factors: Negative Septic Arthritis Risk Factor: Negative - Allergies/Home Medications Allergies/Adverse Reactions: Allergies Allergy/AdvReac Type Severity Reaction Status Date / Time duloxetine [From Cymbalta] Allergy Severe Diarrhea Verified 08/16/19 13:21 varenicline [From Chantix] Allergy Severe Diarrhea Verified 08/16/19 13:21 venlafaxine [From Effexor] Allergy Severe Diarrhea Verified 08/16/19 13:21 HUMIRA Allergy Severe SHUTS BODY Uncoded 08/16/19 13:21 DOWN PMH/Surg Hx/FS Hx/Imm Hx Previously Healthy: Yes Endocrine/Hematology History: Reports: Hx Diabetes - type 2 Cardiovascular History: Reports: Hx Angina, Hx Hypertension - ON MEDICATION FOR , Hx Myocardial Infarction, Other Cardiovascular Problems/Disorders - HEART CATH Denies: Hx Coronary Artery Disease, Hx Hypercholesterolemia, Hx Pacemaker/ICD , Hx Valvular Heart Disease Respiratory History: Reports: Hx Asthma - HX OF- STATES NO MEDICATION FOR, Hx Sleep Apnea Denies: Hx Chronic Obstructive Pulmonary Disease (COPD) GI History: Reports: Other GI Disorders - UMILICAL HERNIA- repaired History: Reports: Hx Kidney Stones - LEFT Denies: Hx Renal Disease Musculoskeletal History: Reports: Hx Arthritis - PSORIATIC, osteoarthritis Sensory History: Reports: Hx Contacts or Glasses - glasses Denies: Hx Hearing Aid Opthamlomology History: Reports: Hx Contacts or Glasses - glasses Neurological History: Reports: Hx Transient Ischemic Attacks (TIA) Psychiatric History: Reports: Hx Anxiety - ON MEDICATION FOR, Hx Depression - ON MEDICATION FOR Denies: Hx Panic Disorder - Cancer History Hx Chemotherapy: No - Surgical History Surgery Procedure, Year, and Place: left shoulder surgery. CARDIAC CATH - NO STENTS 07/2018, x2. umbilical hernia repair. cardiac ablation 03/2019 [facility] Hx Anesthesia Reactions: No - Immunization History Hx Pertussis Vaccination: No Immunizations Up to Date: Yes Infectious Disease History: No Infectious Disease History: Denies: Traveled Outside the [place] in Last 30 Days - Social History Occupation: Employed Full-time Lives: With Family Alcohol Use: Occasionally Alcohol Amount: Patient quit 7 days ago Hx Substance Use: No Substance Use Type: Reports: None Substance Use Comment - Amount & Last Used: Medical Marijuana Smoking Status (MU): Light Every Day Tobacco Smoker Type: Cigarettes Amount Used/How Often: 1/2-3/4 ppd smoked for 30 years Have You Smoked in the Last Year: Yes Review of Systems Negative: Fever, Chills, Fatigue, Skin Diaphoresis Negative: Palpitations, Chest Pain Negative: Shortness Of Breath, Cough Genitourinary: Negative Positive: no symptoms reported, see HPI Positive: Edema - LLE swelling. Negative: Arthralgia, Myalgia Skin: Negative Neurological: Negative All Other Systems Reviewed And Are Negative: Yes Physical Exam Triage Information Reviewed: Yes Vital Signs On Initial Exam: Initial Vitals Temp Pulse Resp BP Pulse Ox 98.1 F 70 18 153/89 98 08/16/19 13:08 08/16/19 13:08 08/16/19 13:08 08/16/19 13:08 08/16/19 13:08 Vital Signs Reviewed: Yes Appearance: Positive: Well-Appearing, Well-Nourished Skin: Positive: Warm, Skin Color Reflects Adequate Perfusion Head/Face: Positive: Normal Head/Face Inspection Eyes: Positive: EOMI, Conjunctiva Clear Neck: Positive: Supple, No Lymphadenopathy Respiratory/Lung Sounds: Positive: Clear to Auscultation, Breath Sounds Present Cardiovascular: Positive: RRR, Pulses are Symmetrical in both Upper and Lower Extremities Musculoskeletal: Positive: Strength/ROM Intact, Edema Left Neurological: Positive: Alert, Oriented to Person Place, Time Psychiatric: Positive: Affect/Mood Appropriate Procedures - Sedation Patient Received Moderate/Deep Sedation with Procedure: No Diagnostics - Vital Signs Vital Signs Temp Pulse Resp BP Pulse Ox 08/16/19 15:26 98.6 F 61 16 134/90 98 08/16/19 14:24 98.7 F 66 18 129/73 96 08/16/19 13:08 98.1 F 70 18 153/89 98 - Laboratory Lab Statement: Any lab studies that have been ordered have been reviewed, and results considered in the medical decision making process. Lower Extremity Course/Dx - Course Course Of Treatment: Ultrasound obtained which shows no evidence for DVT to the left lower extremity. He states symptoms are worse with dependency and ambulation, better with rest and elevation. Symptoms began approximate 4 days ago. There is no erythema or warmth on exam. No pitting edema. Denies any shortness of breath. Denies any fevers. His ultrasound was negative, patient will be discharged with lower externally swelling and is encouraged to follow- up with Dr. Mills. - Diagnoses Differential Diagnosis/HQI/PQRI: Positive: Sprain, Strain, Other - DVT Provider Diagnoses: Swelling of left lower extremity Discharge ED - Sign-Out/Discharge Documenting (check all that apply): Patient Departure - Discharge Plan Condition: Stable Disposition: HOME Referrals: Renzo Martinez MD [Primary Care Provider] - Additional Instructions: No evidence of DVT today Please follow up as needed - Billing Disposition and Condition Condition: STABLE Disposition: Home - Attestation Statements Provider Attestation: I was available for consultation for this patient. I did not evaluate the patient or participate in any medical decision making or disposition decisions unless I am specifically named in the chart as having consulted on the patient. If I have consulted on the patient, please see my own ED note on the patient encounter. Jes Mendoza MD
== END 2019-08-16 15:26 | disposition home or self-care (01) ==
LOC: ED 13:06
DX: M79.89 Other specified soft tissue disorders (principal); E11.9 Type 2 diabetes mellitus without complications; I10 Essential (primary) hypertension; I25.2 Old myocardial infarction; J45.909 Unspecified asthma, uncomplicated; F41.9 Anxiety disorder, unspecified; F32.9 Major depressive disorder, single episode, unspecified; F17.210 Nicotine dependence, cigarettes, uncomplicated; Z86.73 Personal history of transient ischemic attack (TIA), and cerebral infarction without residual deficits; Z88.8 Allergy status to other drugs, medicaments and biological substances; Z79.01 Long term (current) use of anticoagulants
CPT/HCPCS: 99281

== ENCOUNTER 2021-03-01 06:39 | Observation (INO) ==
[~2021-03-01 06:39] MED LIST changes: +Buffered Lidocaine 1% SYRIN 1 ml INTRADERM ONE; -Buffered Lidocaine 1% SYRIN* 1 ML/SYRINGE INTRADERM ONE; -Lactated Ringers 1000 ML Bag* 1,000 ML IV SCH; +Lactated Ringers 1000 ml BAG 1,000 ML IV SCH
[2021-03-01] MEDS ORDERED: ceFAZolin 2 GM PREMIX 2 GM/50 ML BAG ONE (07:00)
[2021-03-01] MEDS ORDERED: Buffered Lidocaine 1% SYRIN 1 ml INTRADERM ONE (07:00)
[2021-03-01] MEDS ORDERED: Ropivacaine 5 MG/ML 20 ML VIAL 0.5% (100 MG) ONE (07:02)
[2021-03-01] MEDS ORDERED: Midazolam 5 mg/5 ml VIAL 1 mg/ml 5 ml VIAL (5 mg) ONE (07:43)
[2021-03-01] MEDS ORDERED: EPHEDrine (Pressors) 50 MG/ML VIAL ONE (08:18)
[2021-03-01] MEDS ORDERED: Magnesium Hydroxide LIQ 30 ML UDC PO PRN (08:51)
[2021-03-01] MEDS ORDERED: Ondansetron ODT 4 mg TAB 4 MG TAB PO PRN (08:51)
[2021-03-01] MEDS ORDERED: Ondansetron 4 mg VIAL 2 MG/ML 2 ml VIAL IV PRN (08:51)
[2021-03-01] MEDS ORDERED: Lactulose 30 ml UDC PO PRN (08:51)
[2021-03-01] MEDS ORDERED: diPHENhydraMINE 25 mg TAB PO PRN (08:51)
[2021-03-01] MEDS ORDERED: diPHENhydraMINE IV 50 MG/ML 1 ml VIAL (BENADRYL) IV PRN (08:51)
[2021-03-01] MEDS ORDERED: Morphine 2 MG/ML SYRINGE IV PRN (08:51)
[2021-03-01] MEDS ORDERED: Sevoflurane BOTTLE ONE (09:40)
[2021-03-01] MEDS ORDERED: oxyCODONE/Acetamin 5/325 mg TAB PO PRN (10:23)
[2021-03-01] MEDS ORDERED: fentaNYL 100 mcg/2 ml 50 MCG/ML VIAL ONE ×2 (10:54→11:08)
[2021-03-01] MEDS ORDERED: oxyCODONE/Acetamin 5/325 mg TAB ONE (10:55)
[2021-03-01] MEDS: fentaNYL 100 mcg/2 ml 50 MCG/ML VIAL IV PRN ×4 (10:56→11:39)
[2021-03-01] MEDS ORDERED: Dextrose 50% Syringe 50 ml 25 GM/50 ML SYRINGE IV PUSH PRN (11:10)
[2021-03-01] MEDS: Lactated Ringers 1000 ml BAG 1,000 ML IV SCH (12:42)
[2021-03-01] MEDS: Vitamin THERAPEUTIC TAB PO SCH (14:28)
[2021-03-01] MEDS: Magnesium Hydroxide LIQ 30 ML UDC PO SCH ×2 (14:28→20:23)
[2021-03-01] MEDS: ceFAZolin 1 GM ADVAN 1 GM in NS 0.9% 50 ML 50 ML IVPB SCH (16:37)
[2021-03-02] MEDS: ceFAZolin 1 GM ADVAN 1 GM in NS 0.9% 50 ML 50 ML IVPB SCH ×2 (00:49→08:56)
[2021-03-02] MEDS: Lactated Ringers 1000 ml BAG 1,000 ML IV SCH (00:51)
[2021-03-02 04:55] LABS: Hematocrit 36 % (42-52); Hemoglobin 12.5 g/dL (14.0-18.0); Mean Platelet Volume 7.8 fL (7.4-10.4); Platelet Count 197 10^3/uL (150-450)
[2021-03-02 05:13] LABS: Calcium 8.4 mg/dL (8.6-10.3); EGFR African American 129.4 (>60); EGFR Non-African American 106.9 (>60); Potassium 4.1 mmol/L (3.5-5.0)
[2021-03-02] MEDS: Vitamin THERAPEUTIC TAB PO SCH (08:57)
[2021-03-02] MEDS: Magnesium Hydroxide LIQ 30 ML UDC PO SCH (08:58)
[2021-03-02] MEDS ORDERED: Nicotine PATCH 14 MG/24 HR PATCH TRANSDERM SCH (09:00)
[2021-03-02 11:12] VITALS: BP 112/72
== END 2021-03-02 14:45 | disposition home or self-care (01) ==
LOC: OR 06:39 → EDSTATUS 07:30 → INTOOBSV 12:23 → SSU 12:23
PROVIDERS: ADMIT Orthopaedic Surgery Adult Reconstructive Orthopaedic Surgery; ATTEND Orthopaedic Surgery Adult Reconstructive Orthopaedic Surgery